=== PATIENT | female | born 1940 | race Caucasian/White ===

== ENCOUNTER → 2017-08-12 12:44 | Outpatient (CLI) | payer MEDICARE, SELFPAY ==
--- NOTE | 2017-08-12 12:48 | RAD_ITS ---
STUDY: X-RAY - UNILATERAL RIBS ( LEFT ) REASON FOR EXAM: Female, 77 years old. Fall. Pain. TECHNIQUE: 2 view(s) of the ribs. COMPARISON: None. FINDINGS: Normal visualized ribs without a demonstrated fracture. The visualized lung is clear and expanded. RAD/Ribs Unil 2V No CXR IMPRESSION: Normal x-ray examination of the ribs. Electronically Signed: Bhaskar Raines MD at 16:56 EDT , Service support ,
--- NOTE | 2017-08-12 12:48 | RAD_ITS ---
STUDY: X-RAY - LUMBAR SPINE REASON FOR EXAM: Female, 77 years old. Fall. Pain. TECHNIQUE: 5 view(s) of the lumbar spine were obtained. COMPARISON: None FINDINGS: There is diffuse demineralization. No compression fractures. Normal lordosis and alignment. Mild multilevel degenerative disc disease. Moderate multilevel facet joint degenerative disease. Heavily calcified aorta, and probable gallstones. RAD/L/S Spine Min 4 Views IMPRESSION: No acute abnormality. Demineralization and degenerative changes. Electronically Signed: Bhaskar Raines MD at 16:52 EDT , Service support ,
== END ==
PROVIDERS: Family Provider Internal Medicine; PCP Internal Medicine; Visit Provider Internal Medicine
DX: M54.9 Dorsalgia, unspecified (principal)
CPT/HCPCS: 71100; 72110

== ENCOUNTER → 2017-08-19 12:31 | Outpatient (CLI) | payer MEDICARE, SELFPAY ==
--- NOTE | 2017-08-19 12:35 | STE_ITS ---
Reason For Study: Dyspnea On Exertion Stress Results Protocol: Dobutamine Stress Echo Maximum Predicted HR: 144 bpm Target HR: 122 bpm% Maximum Pre dicted HR: 91 % DurationHeart Rate Stage (mm:ss) (bpm) BPComm ent Baseline 77 178/99 No Chest Pain DSE 10 MCG 3:05 77 169/100No Chest Pain DSE 20 MCG 3:17 10 0 192/94 No Chest Pain DSE 30 MCG 3:05 13 1 192/109No Chest Pain Recovery 102 154/9 8 No Chest Pain Stress Duration: 9:27 mm:ss Maximum Stress HR: 131 bpmM ETS: 1 Baseline Echocardiogram Findings Stress Echo Wall motion Data Resting WMIntermediate WMStress WM Resting Wall Motion Wall Motion Stress No regional wall motion No regional wall motion abnormalities noted. abnormalities noted. Ejection Fraction 60 %. Ejection Fraction 75 %. Stress Results The patient exhibited a hypertensive response with stress. Drug infusion was stopped due to achievement of target heart rate. EKG Data Baseline ECG demonstrates normal sinus rhythm with a rate of 83 beats per minute. Normal intervals are noted. The resting blood pressure was 178/99. The baseline ECG demonstrates normal sinus rhythm with at rate of _ beats per minute. The patient was titrated from 10 mcg to a maximun of 30 mcg of dobutamine during the stress. This was 90% of maximum predicted heart rate. During dobutamine infusion, there were no ST or T wave changes noted to suggest ischemia. At peak infusion, upsloping ST changes only were noted, which did not meet the criteria for ischemia. The peak blood pressure was 192/109. No arrhythmias noted. No clinical angina was noted. Interpretation Summary The patient was titrated from 10 mcg to a maximun of 30 mcg of dobutamine during the stress. Normal resting LV systolic function. Nonstenotic valves. With stress, the LV size decreased and all segments augmented normally. The LVEF increased from 60% to 75%. Negative for ischemia at 90% of MPHR and at 1 METS. Normal dobutamine stress echo. Ordering Physician: Yasmin Peace Referring Physician: Robert Garcia MD Performed By: Jovanna Garcia RDCS
== END ==
PROVIDERS: Family Provider Internal Medicine; PCP Internal Medicine; Visit Provider Internal Medicine
DX: R06.02 Shortness of breath (principal)
CPT/HCPCS: 93017; 93350; J7030; A4216

== ENCOUNTER → 2017-12-09 12:36 | Outpatient (CLI) | payer MEDICARE, SELFPAY | PROVIDERS: Family Provider Internal Medicine; PCP Internal Medicine; Visit Provider Internal Medicine | DX: Z12.31 Encounter for screening mammogram for malignant neoplasm of breast (principal) | CPT/HCPCS: 77063; 77067 ==

== ENCOUNTER → 2018-12-10 10:06 | Outpatient (CLI) | payer MEDICARE, SELFPAY ==
--- NOTE | 2018-12-10 10:09 | BI_ITS ---
MAMMOGRAPHY - BILATERAL SCREENING 3-D TOMOSYNTHESIS REASON FOR EXAM: Female, 78 years old. Bilateral Screening 3-D tomosynthesis PERTINENT HISTORY: No significant family history. TECHNIQUE: 2-D mammograms and 3-D Tomosynthesis of the breast (s) were performed. CAD was performed. COMPARISON: 12/09/2017, 11/13/2016. FINDINGS: The breast composition is composed of scattered fibroglandular density. Scattered benign calcifications are seen. No dense spiculated masses or suspicious microcalcifications are identified. No architectural distortion is identified. There is no skin thickening or retraction. There has been no significant change since the prior study. BI/SCREEN MAMM (CAD) W/DAXA BILAT IMPRESSION: No mammographic signs of malignancy. Routine yearly mammograms recommended. ASSESSMENT CATEGORY: BIRADS Category 2: Benign. A letter regarding these results will be sent to the patient by the facility within 30 days. FOLLOW UP RECOMMENDATION: Yearly follow up mammogram recommended. (A) Approximately 10% of breast cancers are not detected by mammography. A normal mammogram should not delay biopsy of a clinically suspicious abnormality. Electronically Signed: Norberto Aly MD at 16:19 EDT Tel [phone], Service support ,
--- NOTE | 2018-12-10 10:13 | BD_ITS ---
STUDY: DUAL ENERGY X-RAY ABSORPTIOMETRY / DXA REASON FOR EXAM: Female, 78 years old. The patient is postmenopausal. Loss of height. TECHNIQUE: Bone Mineral Density (BMD) measurements of lumbar spine and bilateral hips were obtained. COMPARISON: Comparison is made with prior examination dated November 13, 2016. FINDINGS: Lumbar Spine (L1-L4): g/cm2 (0.880) / T-score (-2.4) / Z-score (-0.6) Findings are suggestive of osteopenia with a high fracture risk. Increased thoracic kyphosis. Left Femur Total: g/cm2 (0.744) / T-score (-2.1) / Z-score (-0.2) Left Femoral Neck: g/cm2 (0.824) / T-score (-1.5) / Z-score (0.5) Right Femur Total: g/cm2 (0.724) / T-score (-2.3) / Z-score (-0.4) Right Femoral Neck: g/cm2 (0.759) / T-score (-2.0) / Z-score (0.0) The T-Scores on the most recent prior examination were: Lumbar Spine (L1-L4): There has been worsening of bone density since the previous examination. Left Femur Total: which represents a worsening of 7.9%. Right Femur Total: which represents a worsening of 4.7%. BD/Dexa Bone Density Study IMPRESSION: The patient is considered osteopenic as outlined below according to World Inder[employer]it Organization (WHO) criteria with a high fracture risk. There has been worsening of bone density since the previous examination. Reference Information: The T-score is the number of standard deviations above or below the standard which is normal for young adults at their peak bone mineral density. The World Health Organization (WHO) interprets the T-scores as follows: Above -1 Normal bone density Between -1 and -2.5 Osteopenia Equal to / or below -2.5 Osteoporosis As a practical clinical guideline, osteopenia may be graded as follows: Mild -1 through -1.5 Moderate -1.6 through -2.0 Severe -2.1 through -2.4 The Z-score is the number of standard deviations above or below age-matched controls. A Z-score of less than -1.5 would be considered abnormal. References: 1. NIH Osteoporosis and Related Bone Diseases http://www.osteo.org 2. International Society for Clinical Densitometry http://www.iscd.org 3. National Osteoporosis Foundation http://www.nof.org Electronically Signed: Slick Shannon, at 10:40 EDT , Service support ,
== END ==
PROVIDERS: Family Provider Internal Medicine; PCP Internal Medicine; Referring Provider Internal Medicine; Visit Provider Internal Medicine
DX: Z12.31 Encounter for screening mammogram for malignant neoplasm of breast (principal); M81.0 Age-related osteoporosis without current pathological fracture
CPT/HCPCS: 77063; 77067; 77080

== ENCOUNTER → 2019-10-01 13:29 | Outpatient (CLI) | payer MEDICARE, SELFPAY ==
[2019-10-01 11:34] VITALS: BMI 21.2
--- NOTE | 2019-10-01 13:32 | RAD_ITS ---
STUDY: X-RAY - LUMBAR SPINE REASON FOR EXAM: Female, 79 years old. LBP TECHNIQUE: 4 view(s) of the lumbar spine were obtained. Flexion and extension views included. COMPARISON: August 12, 2017 FINDINGS: The bony structures are demineralized. No visualized fracture or compression deformity. No instability/significant subluxation demonstrated with extension or flexion views. Mild retrolisthesis of L2 on L3 of 2 to 3 mm is present, increased by millimeter with extension. Normal lumbar lordosis. There is mild dextroscoliosis of the lumbar spine. There is a normal alignment of the vertebrae. Normal vertebral bodies and endplates. Normal disc space heights. Mild to moderate degenerative changes of the facet joints seen at multiple levels. There is atherosclerotic calcification of the abdominal aorta without a demonstrated aneurysm. RAD/L/S Spine Bending Flex/Ext IMPRESSION: Degenerative changes of the spine, as detailed above. Electronically Signed: Neville Piper MD at 17:27 EDT , Service support ,
== END ==
PROVIDERS: PCP Internal Medicine; Referring Provider Internal Medicine; Visit Provider Internal Medicine
DX: M54.5 Low back pain (principal)
CPT/HCPCS: 72120

== ENCOUNTER → 2019-12-24 10:15 | Outpatient (CLI) | payer MEDICARE, SELFPAY ==
[2019-11-18 05:47] VITALS: BMI 20.4
--- NOTE | 2019-12-24 10:19 | BI_ITS ---
MAMMOGRAPHY - BILATERAL SCREENING REASON FOR EXAM: Female, 79 years old. Routine annual screening examination. PERTINENT HISTORY: Non-contributory. Remote left stereotactic breast biopsy. TECHNIQUE: Digital bilateral breast daxa (3D mammographic acquisition) in the CC and MLO projections. 2-D mediolateral oblique (MLO) and craniocaudad (CC) views of both breasts were obtained. CAD: Full Field Digital Mammography with Computer Added Detection was performed. COMPARISON: Comparison is made with prior examination dated 12/10/2018 and 12/09/2017. FINDINGS: Breast Composition: There are scattered areas of fibroglandular density. There are no dominant masses or suspicious calcifications. No other significant abnormalities are identified. There has been no significant change since the prior study. BI/SCREEN MAMM (CAD) W/DAXA BILAT IMPRESSION: Stable bilateral screening mammogram. Yearly follow-up mammogram recommended. (A) ASSESSMENT CATEGORY: BIRADS Category 1: Negative. A letter regarding these results will be sent to the patient by the facility within 30 days. Approximately 10% of breast cancers are not detected by mammography. A normal mammogram should not delay biopsy of a clinically suspicious abnormality. [id number] Electronically Signed: Slick Shannon, at 11:13 EDT , Service support ,
== END ==
PROVIDERS: PCP Internal Medicine; Referring Provider Internal Medicine; Visit Provider Internal Medicine
DX: Z12.31 Encounter for screening mammogram for malignant neoplasm of breast (principal)
CPT/HCPCS: 77063; 77067

== ENCOUNTER 2020-01-25 10:39 | Inpatient (IN) | payer MEDICARE, SELFPAY ==
[2019-11-18 05:47] VITALS: BMI 20.4
[2020-01-25] VITALS (21 sets, daily range): BP systolic 108–162; BP diastolic 70–123; PULSE 67–88; RESP 12–28; TEMP 36.1–36.8; O2SAT 80–97; BMI 20.5; BMI 20.1
--- NOTE | 2020-01-25 10:56 | EKG12_ITS ---
Test Reason : SOB Blood Pressure : / mmHG Vent. Rate : 080 BPM Atrial Rate : 080 BPM P-R Int : 164 ms QRS Dur : 076 ms QT Int : 366 ms P-R-T Axes : 045 078 -05 degrees QTc Int : 422 ms Normal sinus rhythm Possible Left atrial enlargement T wave abnormality, consider inferior ischemia Abnormal ECG Confirmed by ARLENE FRASER, SHERRY ([id number]), art editor MARY JO CARR ([id number]) on 01/27/2020 10:11:54 AM Referred By: CHERELLE Confirmed By:SHERRY JACOBS MD
--- NOTE | 2020-01-25 10:58 | ED.VIS.GEN ---
History of Present Illness Chief Complaint: Shortness of Breath Informant: Patient Onset: Month(s) - 1 month Context: Gradual Onset Timing: Waxes and wanes Current Severity: Moderate Maximum Severity: Moderate Narrative: Patient presents from PCPs office secondary to shortness of breath. She is a history of COPD and follows with Dr. oPwell. She is normally on 2 to 3 L of oxygen at home. Her PCP has treated her as a COPD exacerbation over the past month. She has been on steroids, Z-Anand, and Augmentin. She had a Covid test that was negative on December 30. She went to her PCPs office today for follow-up and was found to have clear lung sounds but she was still hypoxic. She was sent to the ER for further evaluation. - Past Medical History (1) Carotid stenosis Status: Chronic (2) GERD (gastroesophageal reflux disease) Status: Chronic (3) Hypercholesteremia Status: Chronic (4) Osteoporosis Status: Chronic (5) Restless legs syndrome Status: Chronic (6) COPD (chronic obstructive pulmonary disease) Status: Chronic (7) Chronic hypoxemic respiratory failure Status: Chronic (8) DDD (degenerative disc disease), lumbar Status: Chronic (9) Hypertension Status: Chronic Past Medical History - Allergies and Home Meds Allergies/Adverse Reactions: Allergies codeine Adverse Reaction (Severe, Verified 11/18/19 10:28) Vomiting MOST PAIN MEDS Adverse Reaction (Uncoded 01/25/20 10:40) Vomiting Primary Care Physician: Yasmin Peace MD [Primary Care Provider] - Prior records reviewed: Yes Smoking Status: Former smoker Review of Systems General: Denies: Chills, Fever Eyes: Denies: Visual changes - bilaterally ENT: Denies: Bilateral ear pain Cardiovascular: Denies: Chest pain Respiratory: Reports: Dyspnea, Cough - Occasional cough Gastrointestinal: Denies: Abdominal pain, Nausea, Vomiting, Diarrhea Musculoskeletal: Denies: Swelling, Extremity Pain Skin: Denies: Rash Neurological: Denies: Headache Hematologic: Denies: Easy bruising, Easy bleeding Allergy: Denies: Uticaria Physical Exam Vital Signs/Narrative: Vital Signs Temp Pulse Resp BP Pulse Ox 01/25/20 10:41 96.9 F L 88 22 H 108/95 H 80 Inital Vital Signs reviewed: Yes General: Well nourished, Well developed Head: Normocephalic ENT: Moist mucous membranes Neck: Supple Cardiovascular: Regular rate, Regular rhythm Respiratory: No distress, CTA bilaterally Abdomen: Soft, Nontender Skin: Normal color Neurological: Alert, Oriented x3 Psychological: Normal affect Diagnostic/Tx/Re-eval Impressions Chest CTA 01/25/20 11:44 IMPRESSION: There is a large right hilar mass measuring 7.1 x 5.8 x 5.7 cm, encasing the right upper lobe bronchus and the right pulmonary artery resulted in severe stenosis of the right upper lobe bronchus and right upper lobe artery. There are filling defects in the segmental subsegmental branches in the posterior segment the right lung upper lobe suggesting pulmonary emboli. There is a left anterior nodule measures 2 cm may represent a metastatic lesion. Electronically Signed: Kris Terrence, at 12:54 EDT Tel , Service support , 01/25/20 11:44 CTA Chest W/WO Contrast [CT] Stat Laboratory Results 01/25/20 01/25/20 01/25/20 11:10 11:10 11:10 WBC 7.1 RBC 4.70 Hgb 15.1 H Hct 47.4 H MCV 100.9 H MCH 32.1 H MCHC 31.9 L RDW Std Deviation 49.5 H RDW Coeff of Denis 13.3 Plt Count 290 MPV 8.9 Immature Gran % (Auto) 0.400 Neut % (Auto) 79.5 H Lymph % (Auto) 13.2 L Fergus % (Auto) 6.1 Eos % (Auto) 0.4 Baso % (Auto) 0.4 Absolute Neuts (auto) 5.6 Absolute Lymphs (auto) 0.93 Nucleated RBC % 0 D-Dimer Quant (PE/DVT) 0.83 H* Sodium 138 Potassium 4.0 Chloride 103 Carbon Dioxide 30.0 Anion Gap 5 BUN 12 Creatinine 0.74 Estim Creat Clear Calc 33.20 Est GFR (MDRD) Af Amer 98 Est GFR (MDRD) Non-Af 81 BUN/Creatinine Ratio 16.3 Glucose 91 Lactic Acid Calcium 9.8 Total Bilirubin 0.60 Direct Bilirubin 0.20 AST 18 ALT 15 Alkaline Phosphatase 74 Troponin I 0.032 Total Protein 8.3 H Albumin 3.5 Globulin 4.8 H COVID-19 (MEI) 10/05/20 10/05/20 11:10 11:10 WBC RBC Hgb Hct MCV MCH MCHC RDW Std Deviation RDW Coeff of Denis Plt Count MPV Immature Gran % (Auto) Neut % (Auto) Lymph % (Auto) Fergus % (Auto) Eos % (Auto) Baso % (Auto) Absolute Neuts (auto) Absolute Lymphs (auto) Nucleated RBC % D-Dimer Quant (PE/DVT) Sodium Potassium Chloride Carbon Dioxide Anion Gap BUN Creatinine Estim Creat Clear Calc Est GFR (MDRD) Af Amer Est GFR (MDRD) Non-Af BUN/Creatinine Ratio Glucose Lactic Acid 1.4 Calcium Total Bilirubin Direct Bilirubin AST ALT Alkaline Phosphatase Troponin I Total Protein Albumin Globulin COVID-19 (MEI) Not Detected - EKG Initial EKG Interpretation: Sinus Rhythm - Sinus at [address] change. T inversions noted in lead III. - Medical Decision Making On arrival to the ED patient's sat remained 79% on 6 L nasal cannula. She was placed on nonrebreather and has been satting between 90 and 94%. With any exertion she will drop her sats for a short time and require time for this to recover. Test results discussed with patient and daughter at bedside. She was advised there is a large mass that will require biopsy for further evaluation. She also has blood clots in her lung. She is started on a heparin drip thinking that this could be turned off her lung biopsy. She is still requiring nonrebreather and will be admitted to the ICU. ED Disposition - Plan for ED Patient: Disposition: Acute Care Hospital [facility] Diagnosis: Respiratory failure, Pulmonary emboli, Lung mass Referrals: Yasmin Peace MD [Primary Care Provider] -
[2020-01-25 11:21] LABS: Absolute Lymphocyte Count 0.93 X10^3/uL (0.83-4.51); Absolute Neutrophil Count 5.6 X10^3/uL (2.0-7.7); Basophil# 0.03 X10^3/uL; Basophil% 0.4 % (0-1); Eosinophil# 0.03 X10^3/uL; Eosinophils% 0.4 % (0-5); Hematocrit 47.4 % (37-47); Hemoglobin 15.1 g/dL (12.0-15.0); Lymphocyte # 0.93 X10^3/ul (4.0); Lymphocyte % 13.2 % (19-41); Mean Corp Hgb Conc 31.9 g/dL (32-36); Mean Corpuscular Hgb 32.1 pg (27.0-32.0); Mean Corpuscular Volume 100.9 fL (81-99); Mean Platelet Vol. 8.9 fl (6.2-12.0); Monocyte# 0.43 X10^3/uL; Monocyte% 6.1 % (0-10); NRBC Flagged by Analyzer 0 % (0-5); Neutrophil # 5.62 X10^3/uL (2.7-7.7); Neutrophil % 79.5 % (47-70); Platelet Count 290 K/mm3 (150-450); RBC Distribution Width CV 13.3 % (11.6-14.6); RBC Distribution Width SD 49.5 fl (35.1-43.9); White Blood Count 7.1 K/mm3 (4.4-11.0)
[2020-01-25 11:34] LABS: D-Dimer Quantitative (DVT/PE) 0.83 FEU/ug/m (0.27-0.49)
[2020-01-25 11:40] LABS: AST(SGOT) 18 U/L (15-37); Alanine Aminotransfer ALT/SGPT 15 U/L (13-56); Albumin, Serum 3.5 g/dL (3.2-5.0); Alkaline Phosphatase 74 U/L (45-117); Anion Gap 5 (5-15); BUN 12 mg/dL (7-18); BUN/Creat Ratio 16.3 RATIO (10-20); Calcium,Total 9.8 mg/dL (8.5-10.1); Chloride 103 mmol/L (98-107); Creatinine, Serum 0.74 mg/dL (0.55-1.02); EST Glomerular Filtration Rate 81 mL/min (>60); Est Glom Filt Rate - Afr Amer 98 mL/min (>60); Globulin 4.8 g/dL (2.2-4.2); Glucose 91 mg/dL (74-106); Protein, Total 8.3 g/dL (6.4-8.2); Sodium Level 138 mmol/L (136-145)
--- NOTE | 2020-01-25 11:44 | CT_ITS ---
STUDY: CTA CHEST REASON FOR EXAM: Female, 79 years old. PE, INCREASED SOB X 1 MONTH, ELEVATED D-DIMER RADIATION DOSAGE (If Supplied By Facility): CTDIvol = ( 3.97 ) mGy, DLP = ( 104.80 ) mGycm TECHNIQUE: The examination was performed with the intravenous administration of IV 75mL Isovue-370. Post-processing of the angiographic images was performed, with multiplanar reformation and 3D reconstruction. Individualized dose optimization techniques were used for this CT. COMPARISON: None. FINDINGS: Normal enhancement of the main pulmonary artery and right and left pulmonary arteries. There are filling defects in the segmental subsegmental branches in the posterior segment the right lung upper lobe suggesting pulmonary emboli. Normal thoracic aorta and visualized great vessels. There is no demonstrated aortic dissection. Normal heart and pericardium. Normal mediastinum. There is a large right hilar mass measuring 7.1 x 5.8 x 5.7 cm, encasing the right upper lobe bronchus and the right pulmonary artery resulted in severe stenosis of the right upper lobe bronchus and right upper lobe artery. There are filling defects in the segmental subsegmental branches in the posterior segment the right lung upper lobe suggesting pulmonary emboli. Normal visualized trachea and bronchi. The lungs are hyper expanded, with flattening of the hemidiaphragms. Emphysematous changes are noted in the right and left lung upper lobes. Normal pleura. Normal chest wall structures. There are degenerative changes of thoracic spine. There is a left anterior nodule measures 2 cm may represent a metastatic lesion. CT/CTA Chest W/WO Contrast IMPRESSION: There is a large right hilar mass measuring 7.1 x 5.8 x 5.7 cm, encasing the right upper lobe bronchus and the right pulmonary artery resulted in severe stenosis of the right upper lobe bronchus and right upper lobe artery. There are filling defects in the segmental subsegmental branches in the posterior segment the right lung upper lobe suggesting pulmonary emboli. There is a left anterior nodule measures 2 cm may represent a metastatic lesion. Electronically Signed: Kris Ocampo, at 12:54 EDT Tel , Service support ,
[2020-01-25 11:50] LABS: Lactic Acid 1.4 mmol/L (0.4-1.9)
--- NOTE | 2020-01-25 13:52 | NURSING ---
HOSPITALIST PAGED DR HUSSEIN PAGED
--- NOTE | 2020-01-25 14:09 | NURSING ---
ICU LUNG MASS, HYPOXIA, PE TERETSKY
[2020-01-25 14:37] LABS: Partial Thromboplast Time 34.8 Seconds (24.1-36.2)
--- NOTE | 2020-01-25 14:58 | NURSING ---
ICU 6
[2020-01-25] MEDS: Heparin Injection (Vial) 5,000 UNIT/ML VIAL 3500 UNIT IV (15:03)
--- NOTE | 2020-01-25 15:22 | HP.PCM_ITS ---
Problem List (1) Shortness of breath Status: Acute (2) Low pulse oximetry Status: Acute History of Present Illness Date of Admission: 01/25/20 Chief Complaint: Low pulse oximetry as outpatient, shortness of breath The patient is a 79 year old F who was seen in the emergency room at [facility] after being sent in for evaluation by her PCP due to a low pulse oximetry in the PCPs office today. Patient had complained of increased shortness of breath over the past 2 months, she is on home O2 continuously and sees pulmonary medicine with a diagnosis of COPD. Patient's usual oxygen setting is on 4 L, she has a portable concentrator that only goes up to 3 L. On arrival to the emergency room, the patient's pulse ox was only 80% on 6 L via nasal cannula, patient was transitioned to a nonrebreather, she did not complain of any severe shortness of breath on evaluation. Labs were obtained in the emergency room, her white blood cell count was normal, hemoglobin was 15.1, d- dimer was elevated at 0.83, chemistry profile was unremarkable. Patient had a COVID-19 test ordered-this resulted negative. Patient had a CTA of her chest which showed the presence of a right hilar mass and also the presence of pulmonary emboli in the right upper lobe. Patient will be admitted to ICU for acute on chronic hypoxic respiratory failure, PE, and right lung mass, I talked briefly with pulmonary medicine about her care, patient will be placed on subcu Lovenox, she will be seen in consultation by pulmonary medicine, patient wants to be a DNR CC arrest without intubation-I discussed this with her at the time of admission and also her daughter confirm this-her daughter was in the room during the time of my examination. Patient does state that she wants to be worked up for possible cancer and she would consider whether to have treatment if it comes back that she has cancer. Past Medical History Past Medical History (Chronic Problems): Chronic Problems (Last Reviewed 12/02/19 @ 11:04 by Melissa Camarillo) DDD (degenerative disc disease), lumbar (Chronic) Scoliosis of lumbar spine (Chronic) Bronchiectasis (Chronic) Chronic hypoxemic respiratory failure (Chronic) Stage 2 moderate COPD by GOLD classification (Chronic) Hypercholesteremia (Chronic) Carotid stenosis (Chronic) GERD (gastroesophageal reflux disease) (Chronic) Restless legs syndrome (Chronic) COPD (chronic obstructive pulmonary disease) (Chronic) Hypertension (Chronic) Osteoporosis (Chronic) Polycythemia (Chronic) Medical History: Medical History (Last Reviewed 12/02/19 @ 11:04 by Melissa Camarillo) Elevated high sensitivity C-reactive protein (Acute) R79.82 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 Hypercholesteremia (Chronic) E78.00 Carotid stenosis (Chronic) I65.29 Allergic rhinitis (Acute) J30.9 GERD (gastroesophageal reflux disease) (Chronic) K21.9 Restless legs syndrome (Chronic) G25.81 Gout tophi (Acute) [id number] COPD (chronic obstructive pulmonary disease) (Chronic) J44.9 SOB (shortness of breath) on exertion (Acute) R06.02 Hypertension (Chronic) I10 Bladder prolapse (Acute) Vitamin D deficiency (Acute) E55.9 Osteoporosis (Chronic) M81.0 Bilateral headaches R51 Environmental allergies Z91.09 Allergies codeine Adverse Reaction (Severe, Verified 11/18/19 10:28) Vomiting MOST PAIN MEDS Adverse Reaction (Uncoded 01/25/20 10:40) Vomiting Home Medications: Ambulatory Orders Medication Instructions Recorded Albuterol Inhaler [Ventolin Hfa 1 - 2 puff INHALATION Q4H PRN PRN 07/27/19 (SP)] Lisinopril [Zestril] 20 mg PO BID 07/27/19 Metoprolol(XL)Succ [Toprol Xl 100 mg PO BID 07/27/19 (Beta Emmie)] Nifedipine [Procardia Xl] 30 mg PO DAILY 07/27/19 tiotropium 2.5 mcg-olodaterol 2.5 2 puff INHALATION DAILY 08/03/19 mcg/actuation mist for inhalation Albuterol Aerosols [Ventolin 2.5 mg INHALATION Q4H PRN PRN 01/25/20 Aerosols] Calcium Carbonate/Vitamin D3 1 tab PO DAILY 01/25/20 [Calcium 600-Vit D3 200 Tablet] Denosumab [Prolia] 60 mg IM .[id number] 01/25/20 Surgical History: Surgical History (Last Reviewed 12/02/19 @ 11:04 by Melissa Camarillo) No history of previous surgery (Resolved) Surgical History: tonsillectomy Psychiatric History: 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 [employer] History: No pertinent [employer] history Lives: Alone Smoking Status: Former smoker Tobacco Use: Non-smoker Alcohol: Occasional Drugs: None - *Family History Maternal Family History: Family History (Last Reviewed 12/02/19 @ 11:04 by Melissa Camarillo) Sister Breast cancer Brother Thyroid disorder Brain cancer Mother Leukemia Father Prostate cancer History Items: Cancer - Leukemia Paternal Family History: Family History (Last Reviewed 12/02/19 @ 11:04 by Melissa Camarillo) Sister Breast cancer Brother Thyroid disorder Brain cancer Mother Leukemia Father Prostate cancer History Items: Cancer - Prostate cancer Review of Systems Constitutional: Denies: Anorexia, Chills, Fever, Night Sweats, Malaise, Weakness, Weight Change, Fatigue Eyes: Denies: Cataracts, Conjunctivae Inflammation, Double vision, Drainage HEENT: Denies: Dysphasia, Ear Pain, Eye Pain, Hearing Changes, Nasal bleeding, Nasal Congestion, Post Nasal Drip Cardiovascular: Denies: Chest Pain, Claudication, Chest Pressure, Chest Tightness, Edema, Heaviness, Palpitations Respiratory: Reports: Shortness of Breath, Shortness of breath at rest, Shortness of breath upon exertion. Denies: Cough, Hemoptysis, Pleuritic Pain, Sputum production, Wheezing Gastrointestinal: Denies: Abdominal Pain, Constipation, Diarrhea, Hematemesis, Hematochezia, Nausea, Melena, Vomiting Genitourinary: Denies: Dysuria, Frequency, Hematuria, Hesitancy, Nocturia, Retention, Urgency Musculoskeletal: Denies: Foot Pain, Hand Pain, Joint Pain, Joint stiffness, Joint swelling, Joint Tenderness, Leg Pain Skin: Denies: Dryness, Jaundice, Pruritis, Rash Neurological: Denies: Blurred vision, Double vision, Change in Speech, Slurred speech, Difficulty swallowing, Focal weakness, Headaches, Incoordination, Numbness, Tingling Psychiatric: Denies: Anxiety, Depression, Homicidal Ideations, Suicidal Ideations Endocrine: Denies: Change in Body Habitus, Heat/ Cold Intolerance, Polydipsia, Polyuria Hematologic/ Lymphatic: Denies: Adenopathy, Anemia, Easy Bruising, Easy Bleeding, Petechiae, Purpura VTE Information - Inpt Only VTE Present on Admission: Yes VTE Mechan Device Prophylaxis: None VTE Pharm Prophylaxis ordered?: No Reason prophylaxis not ordered:: Treatment Not Indicated - Patient has right upper lobe PE Patient Problems: Active and Suspected Problems (Last Reviewed 12/02/19 @ 11:04 by Melissa Camarillo) Respiratory failure (Acute) Pulmonary emboli (Acute) Lung mass (Acute) Shortness of breath (Acute) Low pulse oximetry (Acute) - Physical Exam Vitals/I&O's: Vital Signs Temp Pulse Resp BP Pulse Ox 98.3 F 76 19 H 146/108 H 93 01/25/20 15:08 01/25/20 15:08 01/25/20 15:08 01/25/20 15:08 01/25/20 15:08 Oxygen Flow Rate (L/min) 15 Oxygen Delivery Method Non-Rebreather Weight: 45.359 kg Body Mass Index (BMI) 20.5 General: Alert, Oriented x3, Cooperative, No apparent distress, Well developed, Well nourished HEENT: Atraumatic, PERRLA, EOMI, Normocephalic Oral: Moist Mucosa Neck: Supple, No JVD, Negative Carotid Bruits, Trachea Midline, Thyroid Normal Size and Texture Lungs: No rhonchi, Diminished, Rales - Fine rales at the lung bases bilaterally, Wheezes - Diffuse expiratory wheezes over the lower lung green bilaterally Cardiovascular: Regular rate, Regular Rhythm, Normal S1, Normal S2, No murmurs, PMI Normal, No rub noted, No Gallop Abdomen: Bowel Sounds Present, Soft, Non Tender, Non-Distended, No hernias noted Extremities: No clubbing, No cyanosis, No edema, Capillary Refill Less than 3 Seconds Skin: No rashes, No breakdown Musculoskeletal: No Tenderness to Palpation of Joints or Extremities Neurological: Cranial nerves II-XII grossly intact, Neuro grossly intact, Sensory exam intact to light touch and pain, Coordination normal Psych/Mental Status: Normal Affect, Appropriate, Alert and oriented to time, place, person, mood and affect Laboratory Results 01/25/20 11:10: WBC 7.1, RBC 4.70, Hgb 15.1 H, Hct 47.4 H, MCV 100.9 H, MCH 32.1 H, MCHC 31.9 L, RDW Std Deviation 49.5 H, RDW Coeff of Denis 13.3, Plt Count 290, MPV 8.9, Immature Gran % (Auto) 0.400, Neut % (Auto) 79.5 H, Lymph % (Auto) 13.2 L, [place] % (Auto) 6.1, Eos % (Auto) 0.4, Baso % (Auto) 0.4, Absolute Neuts (auto) 5.6, Absolute Lymphs (auto) 0.93, Nucleated RBC % 0 01/25/20 11:10: D-Dimer Quant (PE/DVT) 0.83 H* 01/25/20 11:10: Sodium 138, Potassium 4.0, Chloride 103, Carbon Dioxide 30.0, Anion Gap 5, BUN 12, Creatinine 0.74, Estim Creat Clear Calc 33.20, Est GFR (MDRD) Af Amer 98, Est GFR (MDRD) Non-Af 81, BUN/Creatinine Ratio 16.3, Glucose 91, Calcium 9.8, Total Bilirubin 0.60, Direct Bilirubin 0.20, AST 18, ALT 15, Alkaline Phosphatase 74, Troponin I 0.032, Total Protein 8.3 H, Albumin 3.5, Globulin 4.8 H 01/25/20 11:10: Lactic Acid 1.4 01/25/20 11:10: COVID-19 (MEI) Not Detected 01/25/20 11:10: APTT 34.8 Current Medications Heparin Sodium (Porcine) (Heparin Na) 0 unit IV UD PRN; Protocol PRN Reason: dose adjustment Heparin Sodium/Sodium Chloride () 25,000 unit in 250 mls @ 7 mls/hr IV .[id number] [facility]; Protocol Last Admin: 01/25/20 15:02 Dose: 700 units/hr, 7 mls/hr Documented by: Assessment/Plan All Active Problems (Last Reviewed 12/02/19 @ 11:04 by Melissa Camarillo) Respiratory failure (Acute) Pulmonary emboli (Acute) Lung mass (Acute) Shortness of breath (Acute) Low pulse oximetry (Acute) Segmental and somatic dysfunction of lumbar region (Acute) Segmental and somatic dysfunction of pelvic region (Acute) Segmental and somatic dysfunction of thoracic region (Acute) Elevated high sensitivity C-reactive protein (Acute) Congenital cystic disease of kidney (Acute) Allergic rhinitis (Acute) Gout tophi (Acute) SOB (shortness of breath) on exertion (Acute) Bladder prolapse (Acute) Vitamin D deficiency (Acute) No history of previous surgery (Resolved) #1 acute on chronic hypoxic respiratory failure-probably is a combination of several factors: Acute exacerbation of COPD, acute right upper lobe PE, large right hilar mass-all on an overlay of severe COPD, patient will be admitted to ICU, she will be seen in consultation by pulmonary medicine, patient will be maintained on high flow oxygen for now via nonrebreather, she will be given aggressive aerosol treatments and IV Solu-Medrol. #2 right upper lobe PE-patient will be maintained on subcu Lovenox #3 right hilar mass-probably primary lung cancer, possibly metastatic cancer from another site although less probable, patient is never had a colonoscopy, this right hilar mass will need work-up as an outpatient probably, again patient is not sure whether she would want treatment if it was a cancer but she is not against undergoing a work-up for this. #4 severe COPD #5 essential hypertension #6 chronic hypoxic respiratory failure-patient is on home O2 Again, patient is a DNR CC arrest without intubation. Inpatient E&M: [id number] Init Hosp L3
[2020-01-25] MEDS: Metoprolol(XL)Succ 100 MG Tablet PO (17:11)
[2020-01-25] MEDS: Enoxaparin 60 MG/0.6 ML Syringe 50 MG SC (17:12)
[2020-01-25] MEDS: Ipratropium/Albuterol Sulfate 3 ML AMPUL.NEB INHALATION ×2 (19:32→22:56)
[2020-01-25] MEDS: Lisinopril 20 MG Tablet PO (21:20)
[2020-01-25] MEDS: 0.9% Saline Lock 10 ML Syringe IV (21:30)
--- NOTE | 2020-01-25 22:05 | NURSING ---
Sats 96% on 15L. Decreased O2 to 13L.
[2020-01-26] VITALS (25 sets, daily range): BP systolic 109–149; BP diastolic 31–87; PULSE 61–92; RESP 16–23; TEMP 36.4–36.9; O2SAT 88–99; BMI 20.7
[2020-01-26] MEDS: Ipratropium/Albuterol Sulfate 3 ML AMPUL.NEB INHALATION ×6 (02:33→23:03)
[2020-01-26 05:43] LABS: Absolute Lymphocyte Count 0.44 X10^3/uL (0.83-4.51); Absolute Neutrophil Count 4.6 X10^3/uL (2.0-7.7); Basophil# 0.01 X10^3/uL; Basophil% 0.2 % (0-1); Differential Indicated SCAN CRITERIA MET; Hematocrit 45.6 % (37-47); Hemoglobin 14.5 g/dL (12.0-15.0); Lymphocyte # 0.44 X10^3/ul (4.0); Lymphocyte % 8.5 % (19-41); Mean Corp Hgb Conc 31.8 g/dL (32-36); Mean Corpuscular Hgb 31.3 pg (27.0-32.0); Mean Corpuscular Volume 98.3 fL (81-99); Mean Platelet Vol. 9.1 fl (6.2-12.0); Monocyte# 0.08 X10^3/uL; Monocyte% 1.6 % (0-10); NRBC Flagged by Analyzer 0 % (0-5); Neutrophil # 4.59 X10^3/uL (2.7-7.7); Neutrophil % 89.1 % (47-70); POSITIVE DIFFERENTIAL YES; Platelet Count 282 K/mm3 (150-450); RBC Distribution Width CV 13.2 % (11.6-14.6); RBC Distribution Width SD 47.5 fl (35.1-43.9); Red Blood Count 4.64 M/mm3 (4.2-5.4); White Blood Count 5.2 K/mm3 (4.4-11.0)
[2020-01-26] MEDS: 0.9% Saline Lock 10 ML Syringe IV ×3 (05:43→21:37)
[2020-01-26] MEDS: Enoxaparin 60 MG/0.6 ML Syringe 50 MG SC ×2 (05:43→17:17)
[2020-01-26 06:03] LABS: ALB/GLOB Ratio 0.7 RATIO (0.9-2.4); AST(SGOT) 28 U/L (15-37); Alanine Aminotransfer ALT/SGPT 17 U/L (13-56); Alkaline Phosphatase 63 U/L (45-117); Anion Gap 1 (5-15); BUN 19 mg/dL (7-18); BUN/Creat Ratio 24.6 RATIO (10-20); Calcium,Total 9.6 mg/dL (8.5-10.1); Chloride 105 mmol/L (98-107); Creatinine, Serum 0.77 mg/dL (0.55-1.02); EST Glomerular Filtration Rate 77 mL/min (>60); Est Glom Filt Rate - Afr Amer 93 mL/min (>60); Estimated Creatinine Clearance 33.52 ml/min; Globulin 4.3 g/dL (2.2-4.2); Glucose 139 mg/dL (74-106); Protein, Total 7.3 g/dL (6.4-8.2); Sodium Level 136 mmol/L (136-145)
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
[2020-01-26 06:14] LABS: Differential Comment SCANNED
--- NOTE | 2020-01-26 06:20 | ECHOD_ITS ---
Reason For Study: Dyspnea/SOB Procedure This was a 2D Doppler, Color Flow transthoracic echocardiogram. Technically difficult, breath dependent. The study was technically difficult. Exam performed portable in ICU/CCU. Left Ventricle Normal LV size. Left ventricular systolic function is normal. The estimated ejection fraction is 70 %. Diastolic function is indeterminate. No regional wall motion abnormalities noted. Right Ventricle Mildly dilated right ventricle. Normal systolic function. Atria The left atrium is mildly enlarged. Normal right atrium. No doppler evidence for ASD. Mitral Valve There is mild mitral annular calcification. Mild focal mitral valve calcification, bileaflet. Mild (1+) mitral valve insufficiency. Tricuspid Valve Normal tricuspid valve. Mild to moderate (1-2+) tricuspid valve insufficiency. Right ventricular systolic pressure estimated to be 86 mmHg. Aortic Valve Trisinus/trileaflet aortic valve. Normal aortic valve. Mild (1+) aortic valve insufficiency. Pulmonic Valve The pulmonic valve is not well visualized. Mild (1+) pulmonic valve insufficiency. Great Vessels Normal sized aortic root. Calcified aortic root. Pericardium/Pleural No pericardial effusion. MMode/2D Measurements & Calculations LVIDd: 3.3 cm IVSd: 1.4 cm Ao root diam: 3.2 cm LVIDs: 1.6 cm LVPWd: 1.1 cm LA dimension: 3.1 cm RVDd: 4.4 cm FS: 51.4 % LAV(MOD-bp): 43.3 ml LA A4 area: 18.0 cm2 RA A4 area: 15.9 cm2 LAV(MOD-bp) Indexed: 31.9 ml/m2 LAV(MOD-sp2): 33.6 ml LAV(MOD-sp4): 47.5 ml Time Measurements MV dec time: 0.30 sec Doppler Measurements & Calculations MV E max garrick: 58.8 cm/sec Lat Peak E' Garrick: 8.4 cm/sec Med Peak E' Garrick: 5.1 cm/sec MV A max garrick: 103.5 cm/sec E/E' lat: 7.0 E/E' med: 11.5 MV E/A: 0.57 MV V2 max: 114.3 cm/sec MV P1/2t max garrick: 65.8 cm/sec Ao V2 max: 154.8 cm/sec MV max P.2 mmHg MV P1/2t: 80.0 msec Ao max P.6 mmHg MV V2 mean: 53.3 cm/sec MV dec slope: 240.9 cm/sec2 Ao V2 mean: 99.9 cm/sec MV mean P.4 mmHg MVA(P1/2t): 2.8 cm2 Ao mean P.6 mmHg MV V2 VTI: 25.7 cm Ao V2 VTI: 32.6 cm AI max garrick: 446.7 cm/sec LV V1 max: 121.9 cm/sec TR max garrick: 442.7 cm/sec AI max P.8 mmHg LV V1 max P.9 mmHg TR max P.4 mmHg LV V1 mean P.8 mmHg AI dec slope: 250.9 cm/sec2 LV V1 mean: 76.7 cm/sec AI P1/2t: 521.5 msec LV V1 VTI: 24.5 cm Interpretation Summary The study was technically difficult. Left ventricular systolic function is normal. The estimated ejection fraction is 70 %. Mildly dilated right ventricle. The left atrium is mildly enlarged. There is mild mitral annular calcification. Mild focal mitral valve calcification, bileaflet. Mild (1+) mitral valve insufficiency. Mild to moderate (1-2+) tricuspid valve insufficiency. Mild (1+) aortic valve insufficiency. Mild (1+) pulmonic valve insufficiency. Calcified aortic root. Right ventricular systolic pressure estimated to be 86 mmHg c/w severe pulmonary hypertension. Diastolic function is indeterminate. Ordering Physician: Fadi Vasquez Referring Physician: Yasmin Peace M.D. Performed By: Rogers Jameson RCS
[2020-01-26 08:33] LABS: International Normalized Ratio 1.4
[2020-01-26] MEDS: Metoprolol(XL)Succ 100 MG Tablet PO ×2 (09:55→21:35)
[2020-01-26] MEDS: Lisinopril 20 MG Tablet PO ×2 (09:55→21:35)
[2020-01-26] MEDS: NIFEdipine 30 MG Tablet PO (09:55)
--- NOTE | 2020-01-26 10:29 | NT.THERAPY_ITS ---
Nutrition Therapy Report - History Current diet / nutrition support order:: regular - Anthropometric Measurements Height:: 4 ft 10.5 in Weight:: 45.8 kg Body Mass Index (BMI):: 20.7 - Relevant Labs Relevant Labs:: Hgb 15.1 g/dL (12.0-15.0) H 01/25/20 11:10 Hct 47.4 % (37-47) H 01/25/20 11:10 MCV 100.9 fL (81-99) H 01/25/20 11:10 MCH 32.1 pg (27.0-32.0) H 01/25/20 11:10 MCHC 31.8 g/dL (32-36) L 01/26/20 05:20 RDW Std Deviation 47.5 fl (35.1-43.9) H 01/26/20 05:20 Neut % (Auto) 89.1 % (47-70) H 01/26/20 05:20 Lymph % (Auto) 8.5 % (19-41) L 01/26/20 05:20 Absolute Lymphs (auto) 0.44 X10^3/uL (0.83-4.51) L 01/26/20 05:20 PT 17.0 SECONDS (11.7-14.9) H 01/26/20 07:50 D-Dimer Quant (PE/DVT) 0.83 FEU/ug/m (0.27-0.49) H* 01/25/20 11:10 Anion Gap 1 (5-15) L 01/26/20 05:20 BUN 19 mg/dL (7-18) H 01/26/20 05:20 BUN/Creatinine Ratio 24.6 RATIO (10-20) H 01/26/20 05:20 Glucose 139 mg/dL (74-106) H 01/26/20 05:20 Total Protein 8.3 g/dL (6.4-8.2) H 01/25/20 11:10 Albumin 3.0 g/dL (3.2-5.0) L 01/26/20 05:20 Globulin 4.3 g/dL (2.2-4.2) H 01/26/20 05:20 Albumin/Globulin Ratio 0.7 RATIO (0.9-2.4) L 10/06/20 05:20 - Assessment Food / Nutrition-Related History:: Pt describes appetite as haseeb, states it has declined w/ age. Reports she isn't able to eat large meals d/t resp. status. No special diet at home. Was instructed by PCP to drink Ensure/Boost at home- tries to drink w/meals but states 1 bottle is too much w/ food. Believes UBW ~102- 103#, CBW 101#. Nutrition focused physical exam reveals mild to moderate muscle wasting of both upper and lower extremities, obvious moderate fat loss to clavicles, acromion. Noted elevated blood glucose- on IV steroid. - Nutrition Diagnosis Problem / Etiology / Signs & Symptoms (PES):: Pt w/ chronic, moderate malnutrition related to inadequate energy intake and increased energy needs r/t COPD as evidenced by estimated PO intake meeting less than 75% of pt's needs for greater than 3 months and nutrition focused physical exam revealing mild to moderate muscle wasting of both upper and lower extremities, obvious moderate fat loss to clavicles, acromion process. Evidence of Malnutrition Exists:: Yes Moderate PCM:: Chronic Illness - Nutrition Intervention Nutrition Prescription:: [id number] calories/day, 50-60 g protein/day - Food / Nutrient Delivery Interventions Summary of nutrition intervention:: Discussed ONS w/ pt- explained that smaller, more frequent meals/snacks may be better tolerated for pt. Agreeable to trying Ensure Enlive w/ medpass in between meals for additional calories/protein if consumed. Pt states she has chocolate and vanilla ONS at home- likes vanilla w/ ice cream w/ her ensure. Lunch order taken for pt- no questions for RDN at this time. Nutrition support ordered as / adjusted to:: will continue regular diet and provide Ensure Enlive 120mL 4x/day w/ mepdass. Nutrition education provided?: Yes - MNT Monitoring Further MNT monitoring and evaluation required?: Yes MNT Follow-up in:: 3-5 days
--- NOTE | 2020-01-26 10:29 | PCM.PN.HOSP ---
Patient Problems: Active and Suspected Problems (Last Reviewed 12/02/19 @ 11:04 by Melissa Camarillo) Respiratory failure (Acute) Pulmonary emboli (Acute) Lung mass (Acute) Shortness of breath (Acute) Low pulse oximetry (Acute) Subjective: Patient seen and examined. She was admitted with a complaint of shortness of breath and found to have a right lung mass as well as right-sided PE. She feels much better today. She feels her shortness of breath is improving. She denies any chest pain, palpitations, dizziness, nausea vomiting or diarrhea. Review of stems otherwise negative. She is down to 7 L of oxygen. She has remained hemodynamically stable. Vitals/I&O's: Vital Signs Temp Pulse Resp BP Pulse Ox 98 F 86 18 126/86 H 88 01/26/20 03:00 01/26/20 09:55 01/26/20 09:00 01/26/20 09:55 01/26/20 09:00 Oxygen Flow Rate (L/min) 7 Oxygen Delivery Method Nasal Cannula Weight: 100 lb 15.547 oz Body Mass Index (BMI) 20.1 Intake and Output for Last 24 Hours 01/24/20 01/25/20 01/26/20 23:59 23:59 23:59 Intake Total 220 / 220 0 / 0 Output Total 175 / 175 250 / 250 Balance 45 / 45 -250 / -250 General: Alert, Oriented x3, Cooperative HEENT: Atraumatic, PERRLA, EOMI, Normocephalic Oral: Dry Mucosa Neck: Supple, No JVD, Negative Carotid Bruits Lungs: - - diminished breath sounds bibasally, no wheezes or crackles. on 7L of oxygen by nasal canula Cardiovascular: Regular rate, Regular Rhythm, Normal S1, Normal S2, No murmurs Abdomen: Bowel Sounds Present, Soft, Non Tender, Non-Distended, No Hepato-splenomegaly Extremities: No clubbing, No cyanosis, No edema, Capillary Refill Less than 3 Seconds Skin: No rashes, No breakdown Musculoskeletal: No Tenderness to Palpation of Joints or Extremities Lymphatic: No Cervical, Supraclavicular, or Inguinal Adenopathy Neurological: Cranial nerves II-XII grossly intact, Neuro grossly intact, Motor Exam 5/5 strength throughout Psych/Mental Status: Normal Affect, Appropriate, Alert and oriented to time, place, person, mood and affect Laboratory Results 01/25/20 11:10: WBC 7.1, RBC 4.70, Hgb 15.1 H, Hct 47.4 H, MCV 100.9 H, MCH 32.1 H, MCHC 31.9 L, RDW Std Deviation 49.5 H, RDW Coeff of Denis 13.3, Plt Count 290, MPV 8.9, Immature Gran % (Auto) 0.400, Neut % (Auto) 79.5 H, Lymph % (Auto) 13.2 L, Edgar % (Auto) 6.1, Eos % (Auto) 0.4, Baso % (Auto) 0.4, Absolute Neuts (auto) 5.6, Absolute Lymphs (auto) 0.93, Nucleated RBC % 0 01/25/20 11:10: D-Dimer Quant (PE/DVT) 0.83 H* 01/25/20 11:10: Sodium 138, Potassium 4.0, Chloride 103, Carbon Dioxide 30.0, Anion Gap 5, BUN 12, Creatinine 0.74, Estim Creat Clear Calc 33.20, Est GFR (MDRD) Af Amer 98, Est GFR (MDRD) Non-Af 81, BUN/Creatinine Ratio 16.3, Glucose 91, Calcium 9.8, Total Bilirubin 0.60, Direct Bilirubin 0.20, AST 18, ALT 15, Alkaline Phosphatase 74, Troponin I 0.032, Total Protein 8.3 H, Albumin 3.5, Globulin 4.8 H 01/25/20 11:10: Lactic Acid 1.4 01/25/20 11:10: COVID-19 (MEI) Not Detected 01/25/20 11:10: APTT 34.8 01/26/20 05:20: WBC 5.2, RBC 4.64, Hgb 14.5, Hct 45.6, MCV 98.3, MCH 31.3, MCHC 31.8 L, RDW Std Deviation 47.5 H, RDW Coeff of Denis 13.2, Plt Count 282, MPV 9.1, Immature Gran % (Auto) 0.600, Neut % (Auto) 89.1 H, Lymph % (Auto) 8.5 L, Edgar % (Auto) 1.6, Eos % (Auto) 0.0, Baso % (Auto) 0.2, Absolute Neuts (auto) 4.6, Absolute Lymphs (auto) 0.44 L, Nucleated RBC % 0, Differential Comment SCANNED 01/26/20 05:20: Sodium 136, Potassium 5.0, Chloride 105, Carbon Dioxide 30.0, Anion Gap 1 L, BUN 19 H, Creatinine 0.77, Estim Creat Clear Calc 33.52, Est GFR (MDRD) Af Amer 93, Est GFR (MDRD) Non-Af 77, BUN/Creatinine Ratio 24.6 H, Glucose 139 H, Calcium 9.6, Total Bilirubin 0.50, AST 28, ALT 17, Alkaline Phosphatase 63, Total Protein 7.3, Albumin 3.0 L, Globulin 4.3 H, Albumin/Globulin Ratio 0.7 L 01/26/20 07:50: PT 17.0 H, INR 1.4 Diagnostic Data Chest CTA 01/25/20 11:44 IMPRESSION: There is a large right hilar mass measuring 7.1 x 5.8 x 5.7 cm, encasing the right upper lobe bronchus and the right pulmonary artery resulted in severe stenosis of the right upper lobe bronchus and right upper lobe artery. There are filling defects in the segmental subsegmental branches in the posterior segment the right lung upper lobe suggesting pulmonary emboli. There is a left anterior nodule measures 2 cm may represent a metastatic lesion. Electronically Signed: Kris Ocampo, at 12:54 EDT Tel , Service support , Current Medications Acetaminophen (Tylenol) 650 mg PO Q6H PRN PRN PRN Reason: Pain Score 1-10/Temp > 100.7 F Albuterol Sulfate (Ventolin Aerosols) 2.5 mg INHALATION Q2H PRN PRN PRN Reason: DYSPNEA Albuterol/Ipratropium (Duoneb) 3 ml INHALATION Q4H.RT [facility] Last Admin: 01/26/20 07:44 Dose: 3 ml Documented by: Enoxaparin Sodium (Lovenox) 50 mg SC Q12@0600,1800 [facility] Last Admin: 01/26/20 05:43 Dose: 50 mg Documented by: Lisinopril (Zestril) 20 mg PO BID [facility] Last Admin: 01/26/20 09:55 Dose: 20 mg Documented by: Methylprednisolone (Solu-Medrol) 40 mg IV Q8 [facility] Last Admin: 01/26/20 05:43 Dose: 40 mg Documented by: Metoprolol Succinate (Toprol Xl (Beta Emmie)) 100 mg PO BID [facility] Last Admin: 01/26/20 09:55 Dose: 100 mg Documented by: Nifedipine (Procardia Xl) 30 mg PO DAILY [facility] Last Admin: 01/26/20 09:55 Dose: 30 mg Documented by: Nutritional Formula (Lactose Free) (Ensure Enlive) 120 ml PO 4X/DAY [facility] Sodium Chloride () 10 - 40 ml IV UD PRN PRN Reason: SALINE FLUSH Last Admin: 01/26/20 05:43 Dose: 20 ml Documented by: STROKE Vital Signs/Narrative: Vital Signs Pulse Resp BP BP Pulse Ox 01/26/20 09:55 86 126/86 H 01/26/20 09:00 84 18 126/86 H 88 01/26/20 07:56 93 01/26/20 07:45 73 19 H 92 01/26/20 07:13 73 01/26/20 07:00 75 16 125/31 H 90 Medical Necessity - Tobacco Use Smoking Status: Former smoker Tobacco Use: Cigarettes Assessment/Plan All Active Problems (Last Reviewed 12/02/19 @ 11:04 by Melissa Camarillo) Respiratory failure (Acute) Pulmonary emboli (Acute) Lung mass (Acute) Shortness of breath (Acute) Low pulse oximetry (Acute) Segmental and somatic dysfunction of lumbar region (Acute) Segmental and somatic dysfunction of pelvic region (Acute) Segmental and somatic dysfunction of thoracic region (Acute) Elevated high sensitivity C-reactive protein (Acute) Congenital cystic disease of kidney (Acute) Allergic rhinitis (Acute) Gout tophi (Acute) SOB (shortness of breath) on exertion (Acute) Bladder prolapse (Acute) Vitamin D deficiency (Acute) No history of previous surgery (Resolved) # Acute on chronic hypoxic respiratory failure Due to right-sided PE and lung mass. Also suspected that she may have an acute on chronic exacerbation of COPD. Currently on 7 L of oxygen by nasal cannula. Titrate oxygen to maintain saturation above 90%. On breathing treatment with bronchodilators. Pulmonology on board. Also on IV Solu-Medrol. #Right-sided PE: On subcu Lovenox. Likely due to right lung mass which is suspicious for malignancy in light of her surgery of chronic smoking. Pulmonology on board. 2D echo ordered. #Right-sided hilar mass: CTA of the chest on admission showed a right sided large hilar mass measuring about 7.1 x 5.8 x 5.7 cm encasing the right upper lobe bronchus and the right pulmonary artery resulting in severe stenosis of the right upper lobe bronchus and right upper lobe artery with an anterior left nodule of about 2 cm which may represent a metastatic lesion. She does have a history of chronic smoking though she quit several years ago. By pulmonology, to have bronchoscopy and biopsy and its to be best completed under general anesthesia in the OR given the patient's tenuous respiratory status. #Hypertension: On metoprolol and lisinopril as well as nifedipine. DVT prophylaxis: Already therapeutically anticoagulated on account of PE. Disposition: Transfer to PCU. Inpatient E&M: 13313 [facility] Hosp L3
--- NOTE | 2020-01-26 12:37 | CASEMGMT ---
RN MOON assessment: Face to Face with patient for initial transition planning/care coordination assessment. RN MOON introduced self and role at [facility], pt voices understanding and consents to assessment at this time. Pt is sitting up in chair in no distress at this time. Pt is A/Ox4 at this time and answers all questions appropriately at this time. Pt is currently on 10 liters nc at this time. Care providers, pharmacy, and demographics verified at this time. Presentation: Increased SOB x1 month, COVID neg 1 month ago Admitting dx: Right PE, A on C resp failure PCP: N[facility] Specialists: lore Powell [facility] [place] Insurance: [facility] Prescription Benefit: [facility] Living Will/HPOA: Pt states has LW/HPOA and states her daughter brought a copy in and placed on chart at this time. Per pt, she has a different set of papers for when she travels that lists her sig other as HPOA. Pt states her daughter, Lili Ingram, is HPOA for here in [place]. This RN CM checked the AD's brought in by daughter and the HPOA lists Joe Oneal as HPOA and pt updated at this time. Pt states that those are the wrong papers for here at hospital and requests them back at this time. Pt states she will call daughter and have her bring the other set in. Pt's LW left on chart at this time. LNOK: Lili Ingram, daughter Living Arrangements: Pt states lives either alone or sig other stays with her at her 1 story home and pt states no concerns at home at this time. Pt states is independent with ADL's. Transportation: Pt states sig other or family drives most of time and states no transportation concerns at this time. DME/HHC: Pt states has pulse ox and home oxygen thru [facility], [place], consisting of concentrator/portable concentrator. Pt states she has been on 4liters at home but states order is for 3liters continuous. Pt states Dr. Peace told her a week ago to increase to 4liters due to SOB. Call to [facility] [place] and per Rashmi, she states pt's most recent order is for 2liters continuous. CM to follow for increased home oxygen need. Pt states no hx of HHC or SNF in the past. Pt states no concerns with going home at time of discharge. Pt states is retired. Pt states quit smoking 11-12 yrs ago and states drinks 2 glasses of wine nightly. Pt states no further concerns/needs at this time. CM to follow for increased home oxygen and any further discharge planning/needs. Advised pt to ask for CM if any further questions/concerns/needs arise, voices understanding. Pt Goal: Home Plan: Home Kody ARELLANO CM
--- NOTE | 2020-01-26 16:06 | CHAPLAIN ---
Type of Pastoral Visit _x__ Initial Visit ___ Follow-up Visit ___ On-call Visit ___ General Patient Visit ___ Spiritual Assessment ___ Family Conference ___ Bereavement ___ Rapid Response ___ Code Blue ___ Other (describe below) Pastoral Care Referral From _x__ Patient ___ Family ___ Nurse ___ Physician ___ District Claims Manager ___ Earth Science Laboratory Technician ___ Other (describe below) Sacrament/Intervention _x__ Active listening ___ Anointing ___ Muslim ___ Bereavement ___ Communion ___ Selena exploration ___ _x__ Life review ___ Prayer ___ Reconciliation ___ Sacrament of Sick _x__ Supportive presence ___ Wedding ___ Other (describe below) Pastoral Comments was present with patient when the daughter of pt arrived; introduced self and role; offer of support welcomed especially since 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
[2020-01-27] VITALS (19 sets, daily range): BP systolic 122–142; BP diastolic 69–87; PULSE 61–91; RESP 16–86; TEMP 36.4–36.7; O2SAT 90–93
[2020-01-27] MEDS: Albuterol 2.5 MG/3 ML VIAL.NEB. INHALATION (04:33)
[2020-01-27] MEDS: 0.9% Saline Lock 10 ML Syringe IV ×4 (05:19→21:27)
[2020-01-27] MEDS: Enoxaparin 60 MG/0.6 ML Syringe 50 MG SC ×2 (05:20→17:37)
[2020-01-27 05:48] LABS: Absolute Lymphocyte Count 0.58 X10^3/uL (0.83-4.51); Absolute Neutrophil Count 8.9 X10^3/uL (2.0-7.7); Basophil# 0.01 X10^3/uL; Basophil% 0.1 % (0-1); Differential Indicated SCAN CRITERIA MET; Hematocrit 46.3 % (37-47); Hemoglobin 14.8 g/dL (12.0-15.0); Lymphocyte # 0.58 X10^3/ul (4.0); Lymphocyte % 5.9 % (19-41); Mean Platelet Vol. 9.1 fl (6.2-12.0); Monocyte# 0.29 X10^3/uL; NRBC Flagged by Analyzer 0 % (0-5); Neutrophil # 8.85 X10^3/uL (2.7-7.7); Neutrophil % 90.5 % (47-70); POSITIVE DIFFERENTIAL YES; Platelet Count 303 K/mm3 (150-450); RBC Distribution Width CV 13.1 % (11.6-14.6); RBC Distribution Width SD 47.6 fl (35.1-43.9); Red Blood Count 4.63 M/mm3 (4.2-5.4); White Blood Count 9.8 K/mm3 (4.4-11.0)
[2020-01-27 06:01] LABS: Anion Gap 3 (5-15); BUN 22 mg/dL (7-18); BUN/Creat Ratio 32.8 RATIO (10-20); Calcium,Total 9.4 mg/dL (8.5-10.1); Chloride 104 mmol/L (98-107); Creatinine, Serum 0.67 mg/dL (0.55-1.02); EST Glomerular Filtration Rate 90 mL/min (>60); Est Glom Filt Rate - Afr Amer 109 mL/min (>60); Estimated Creatinine Clearance 33.52 ml/min; Glucose 129 mg/dL (74-106); Potassium 4.1 mmol/L (3.5-5.1); Sodium Level 137 mmol/L (136-145)
[2020-01-27 06:08] LABS: Differential Comment SCANNED
[2020-01-27] MEDS: Furosemide 40 MG/4 ML Vial IV ×2 (06:53→16:51)
[2020-01-27] MEDS: Ipratropium/Albuterol Sulfate 3 ML AMPUL.NEB INHALATION ×5 (07:23→23:01)
--- NOTE | 2020-01-27 10:00 | PN_ITS ---
Patient Problems: Active and Suspected Problems (Last Reviewed 12/02/19 @ 11:04 by Melissa Camarillo) Respiratory failure (Acute) Pulmonary emboli (Acute) Lung mass (Acute) Shortness of breath (Acute) Low pulse oximetry (Acute) Subjective: The patient was seen and examined at the bedside this morning. Events from the last 24 hours have been reviewed. The patient is currently afebrile, hemodynamically stable and maintaining appropriate oxygen saturations on 8 L/min via nasal cannula. She remains short of breath, but denies the presence of a cough. She has not been out of bed yet today and has only been using her incentive spirometer sparingly. Objective: The patient's most recent lab work, culture data and imaging studies have all been personally reviewed. Surface echocardiogram revealed normal LV size and function with an ejection fraction of 70%. Diastolic function was indeterminate. The RV was mildly dilated with normal systolic function. Right ventricular systolic pressure was estimated to be 86 mmHg. Respiratory viral panel was negative. Blood cultures have shown no growth to date. - Physical Exam Vitals/I&O's: Vital Signs Temp Pulse Resp BP Pulse Ox 97.6 F L 81 18 131/84 H 91 01/27/20 04:50 01/27/20 07:37 01/27/20 07:23 01/27/20 04:50 01/27/20 07:23 Oxygen Flow Rate (L/min) 9 Oxygen Delivery Method Nasal Cannula Weight: 100 lb 15.547 oz Body Mass Index (BMI) 20.7 Intake and Output for Last 24 Hours 01/25/20 01/26/20 01/27/20 23:59 23:59 23:59 Intake Total 220 / 220 1320 / 1320 50 / 50 Output Total 175 / 175 250 / 250 Balance 45 / 45 1070 / 1070 50 / 50 General: Alert, Oriented x3, Cooperative, No apparent distress HEENT: Atraumatic, PERRLA, Normocephalic Oral: Moist Mucosa, No Gingival or Mucosal Lesions/ Ulcerations Neck: Supple, No Nodes, Trachea Midline Lungs: No rhonchi, No wheeze, No rales, Diminished Cardiovascular: Regular rate, Regular Rhythm Abdomen: Bowel Sounds Present, Soft, Non Tender Extremities: No clubbing, No cyanosis, No edema Skin: No breakdown Musculoskeletal: No Tenderness to Palpation of Joints or Extremities, No Muscle Wasting Lymphatic: No Cervical, Supraclavicular, or Inguinal Adenopathy Neurological: Cranial nerves II-XII grossly intact, Neuro grossly intact Psych/Mental Status: Normal Affect, Appropriate Labs (Last 48 Hours) 01/25/20 01/25/20 01/25/20 11:10 11:10 11:10 WBC 7.1 RBC 4.70 Hgb 15.1 H Hct 47.4 H MCV 100.9 H MCH 32.1 H MCHC 31.9 L RDW Std Deviation 49.5 H RDW Coeff of Denis 13.3 Plt Count 290 MPV 8.9 Immature Gran % (Auto) 0.400 Neut % (Auto) 79.5 H Lymph % (Auto) 13.2 L Pinal % (Auto) 6.1 Eos % (Auto) 0.4 Baso % (Auto) 0.4 Absolute Neuts (auto) 5.6 Absolute Lymphs (auto) 0.93 Nucleated RBC % 0 Differential Comment PT INR APTT D-Dimer Quant (PE/DVT) 0.83 H* Sodium 138 Potassium 4.0 Chloride 103 Carbon Dioxide 30.0 Anion Gap 5 BUN 12 Creatinine 0.74 Estim Creat Clear Calc 33.20 Est GFR (MDRD) Af Amer 98 Est GFR (MDRD) Non-Af 81 BUN/Creatinine Ratio 16.3 Glucose 91 Lactic Acid Calcium 9.8 Total Bilirubin 0.60 Direct Bilirubin 0.20 AST 18 ALT 15 Alkaline Phosphatase 74 Troponin I 0.032 Total Protein 8.3 H Albumin 3.5 Globulin 4.8 H Albumin/Globulin Ratio COVID-19 (MEI) 01/25/20 01/25/20 01/25/20 11:10 11:10 11:10 WBC RBC Hgb Hct MCV MCH MCHC RDW Std Deviation RDW Coeff of Denis Plt Count MPV Immature Gran % (Auto) Neut % (Auto) Lymph % (Auto) Pinal % (Auto) Eos % (Auto) Baso % (Auto) Absolute Neuts (auto) Absolute Lymphs (auto) Nucleated RBC % Differential Comment PT INR APTT 34.8 D-Dimer Quant (PE/DVT) Sodium Potassium Chloride Carbon Dioxide Anion Gap BUN Creatinine Estim Creat Clear Calc Est GFR (MDRD) Af Amer Est GFR (MDRD) Non-Af BUN/Creatinine Ratio Glucose Lactic Acid 1.4 Calcium Total Bilirubin Direct Bilirubin AST ALT Alkaline Phosphatase Troponin I Total Protein Albumin Globulin Albumin/Globulin Ratio COVID-19 (MEI) Not Detected 01/26/20 01/26/20 01/26/20 05:20 05:20 07:50 WBC 5.2 RBC 4.64 Hgb 14.5 Hct 45.6 MCV 98.3 MCH 31.3 MCHC 31.8 L RDW Std Deviation 47.5 H RDW Coeff of Denis 13.2 Plt Count 282 MPV 9.1 Immature Gran % (Auto) 0.600 Neut % (Auto) 89.1 H Lymph % (Auto) 8.5 L Pinal % (Auto) 1.6 Eos % (Auto) 0.0 Baso % (Auto) 0.2 Absolute Neuts (auto) 4.6 Absolute Lymphs (auto) 0.44 L Nucleated RBC % 0 Differential Comment SCANNED PT 17.0 H INR 1.4 APTT D-Dimer Quant (PE/DVT) Sodium 136 Potassium 5.0 Chloride 105 Carbon Dioxide 30.0 Anion Gap 1 L BUN 19 H Creatinine 0.77 Estim Creat Clear Calc 33.52 Est GFR (MDRD) Af Amer 93 Est GFR (MDRD) Non-Af 77 BUN/Creatinine Ratio 24.6 H Glucose 139 H Lactic Acid Calcium 9.6 Total Bilirubin 0.50 Direct Bilirubin AST 28 ALT 17 Alkaline Phosphatase 63 Troponin I Total Protein 7.3 Albumin 3.0 L Globulin 4.3 H Albumin/Globulin Ratio 0.7 L COVID-19 (MEI) 01/27/20 01/27/20 05:24 05:24 WBC 9.8 RBC 4.63 Hgb 14.8 Hct 46.3 MCV 100.0 H MCH 32.0 MCHC 32.0 RDW Std Deviation 47.6 H RDW Coeff of Denis 13.1 Plt Count 303 MPV 9.1 Immature Gran % (Auto) 0.500 Neut % (Auto) 90.5 H Lymph % (Auto) 5.9 L Pinal % (Auto) 3.0 Eos % (Auto) 0.0 Baso % (Auto) 0.1 Absolute Neuts (auto) 8.9 H Absolute Lymphs (auto) 0.58 L Nucleated RBC % 0 Differential Comment SCANNED PT INR APTT D-Dimer Quant (PE/DVT) Sodium 137 Potassium 4.1 Chloride 104 Carbon Dioxide 30.0 Anion Gap 3 L BUN 22 H Creatinine 0.67 Estim Creat Clear Calc 33.52 Est GFR (MDRD) Af Amer 109 Est GFR (MDRD) Non-Af 90 BUN/Creatinine Ratio 32.8 H Glucose 129 H Lactic Acid Calcium 9.4 Total Bilirubin Direct Bilirubin AST ALT Alkaline Phosphatase Troponin I Total Protein Albumin Globulin Albumin/Globulin Ratio COVID-19 (MEI) Microbiology 01/25/20 11:11 Blood Culture (Wb) - Anticubital Right Blood Culture - Preliminary No growth in 48 hours. 01/25/20 11:11 Blood Culture (Wb) - Anticubital Left Blood Culture - Preliminary No growth in 48 hours. 01/26/20 07:45 Interface Orders Respiratory Panel (PCR) - Final Clinical Impression(s) from Imaging Studies Chest CTA 01/25/20 11:44 IMPRESSION: There is a large right hilar mass measuring 7.1 x 5.8 x 5.7 cm, encasing the right upper lobe bronchus and the right pulmonary artery resulted in severe stenosis of the right upper lobe bronchus and right upper lobe artery. There are filling defects in the segmental subsegmental branches in the posterior segment the right lung upper lobe suggesting pulmonary emboli. There is a left anterior nodule measures 2 cm may represent a metastatic lesion. Electronically Signed: Ponce Terrence, at 12:54 EDT Tel , Service support , Current Medications Acetaminophen (Tylenol) 650 mg PO Q6H PRN PRN PRN Reason: Pain Score 1-10/Temp > 100.7 F Albuterol Sulfate (Ventolin Aerosols) 2.5 mg INHALATION Q2H PRN PRN PRN Reason: DYSPNEA Last Admin: 01/27/20 04:33 Dose: 2.5 mg Documented by: Albuterol/Ipratropium (Duoneb) 3 ml INHALATION Q4H.RT [facility] Last Admin: 01/27/20 07:23 Dose: 3 ml Documented by: Enoxaparin Sodium (Lovenox) 50 mg SC Q12@0600,1800 [facility] Last Admin: 01/27/20 05:20 Dose: 50 mg Documented by: Lisinopril (Zestril) 20 mg PO BID [facility] Last Admin: 01/26/20 21:35 Dose: 20 mg Documented by: Methylprednisolone (Solu-Medrol) 40 mg IV Q8 [facility] Last Admin: 01/27/20 05:20 Dose: 40 mg Documented by: Metoprolol Succinate (Toprol Xl (Beta Emmie)) 100 mg PO BID [facility] Last Admin: 01/26/20 21:35 Dose: 100 mg Documented by: Nifedipine (Procardia Xl) 30 mg PO DAILY [facility] Last Admin: 01/26/20 09:55 Dose: 30 mg Documented by: Nutritional Formula (Lactose Free) (Ensure Enlive) 120 ml PO 4X/DAY [facility] Last Admin: 01/26/20 21:35 Dose: Not Given Documented by: Sodium Chloride () 10 - 40 ml IV UD PRN PRN Reason: SALINE FLUSH Last Admin: 01/27/20 06:53 Dose: 10 ml Documented by: Medical Necessity - Tobacco Use Smoking Status: Former smoker Tobacco Use: Cigarettes Assessment/Plan All Active Problems (Last Reviewed 12/02/19 @ 11:04 by Melissa Camarillo) Respiratory failure (Acute) Pulmonary emboli (Acute) Lung mass (Acute) Shortness of breath (Acute) Low pulse oximetry (Acute) Segmental and somatic dysfunction of lumbar region (Acute) Segmental and somatic dysfunction of pelvic region (Acute) Segmental and somatic dysfunction of thoracic region (Acute) Elevated high sensitivity C-reactive protein (Acute) Congenital cystic disease of kidney (Acute) Allergic rhinitis (Acute) Gout tophi (Acute) SOB (shortness of breath) on exertion (Acute) Bladder prolapse (Acute) Vitamin D deficiency (Acute) No history of previous surgery (Resolved) RECOMMENDATIONS: 1. Wean supplemental oxygen to maintain saturations at or above 88%. 2. Continue scheduled bronchodilator therapy and IV steroids. 3. Continue Lovenox as ordered. 4. Attempt gentle diuresis as tolerated by hemodynamics and renal function. 5. Encourage incentive spirometer use and mobilize patient as tolerated. 6. Recommend bronchoscopic airway evaluation to facilitate needle biopsy of the patient's right hilar lung mass. IMPRESSIONS: 1. Acute on chronic hypoxemic respiratory failure The patient previously was noted to have a 3 L/min baseline oxygen requirement. [place], the patient has noted worsening in her breathing quality. She has been treated with antibiotics and steroids by her PCP with little overall improvement in her respiratory status. Subsequent work-up in the emergency department did reveal evidence of pulmonary emboli along with a large right hilar lung mass exerting a mass-effect on the right- sided tracheobronchial tree and pulmonary vasculature. This is highly suspicious for underlying malignancy. Although reluctant, the patient seems agreeable to proceeding with bronchoscopy and biopsy. For safety reasons, this would likely be best completed under general anesthesia in the OR, given the patient's tenuous respiratory status. This can likely be arranged next week on an outpatient basis. In the interim, the patient supplemental oxygen will be w eaned and she will be continued on systemic anticoagulation. Scheduled bronchodilator therapy will be continued along with IV steroids. Given that the patient does have pulmonary hypertension on echocardiogram, will attempt gentle diuresis as tolerated by hemodynamics and renal function. 2. Right hilar lung mass Management as noted above with plans for bronchoscopy and biopsy, likely to be scheduled next week on outpatient basis under general anesthesia. 3. 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 Continue home medications as indicated. This note was generated with [employer] dictation software. It may contain incorrect words, spelling, and punctuation that were not noted in checking the note before signing. Inpatient E&M: 25630 Subs Hosp L2
[2020-01-27] MEDS: Metoprolol(XL)Succ 100 MG Tablet PO ×2 (11:29→21:26)
[2020-01-27] MEDS: NIFEdipine 30 MG Tablet PO (11:29)
[2020-01-27] MEDS: Lisinopril 20 MG Tablet PO ×2 (11:29→21:26)
--- NOTE | 2020-01-27 11:30 | PN_ITS ---
Patient Problems: Active and Suspected Problems (Last Reviewed 12/02/19 @ 11:04 by Melissa Camarillo) Respiratory failure (Acute) Pulmonary emboli (Acute) Lung mass (Acute) Shortness of breath (Acute) Low pulse oximetry (Acute) Subjective: Patient seen and examined. She had no complaints this morning and felt well. She denied feeling short of breath and so she felt her breathing was the same. She denied any nausea vomiting or chest pain. Patient is however up to 9 L of oxygen now high flow nasal cannula. She has remained otherwise hemodynamically stable. Vitals/I&O's: Vital Signs Temp Pulse Resp BP Pulse Ox 97.7 F L 74 18 127/69 H 90 01/27/20 10:15 01/27/20 11:29 01/27/20 10:15 01/27/20 10:15 01/27/20 10:15 Oxygen Flow Rate (L/min) 9 Oxygen Delivery Method Nasal Cannula Weight: 100 lb 15.547 oz Body Mass Index (BMI) 20.7 Intake and Output for Last 24 Hours 01/25/20 01/26/20 01/27/20 23:59 23:59 23:59 Intake Total 220 / 220 1320 / 1320 50 / 50 Output Total 175 / 175 250 / 250 Balance 45 / 45 1070 / 1070 50 / 50 General: Alert, Oriented x3, Cooperative HEENT: Atraumatic, PERRLA, EOMI, Normocephalic Oral: Dry Mucosa Neck: Supple, No JVD, Negative Carotid Bruits Lungs: - - diminished breath sounds bibasally, no wheezes or crackles. on 9L of oxygen by nasal canula Cardiovascular: Regular rate, Regular Rhythm, Normal S1, Normal S2, No murmurs Abdomen: Bowel Sounds Present, Soft, Non Tender, Non-Distended, No Hepato- splenomegaly Extremities: No clubbing, No cyanosis, No edema, Capillary Refill Less than 3 Seconds Skin: No rashes, No breakdown Musculoskeletal: No Tenderness to Palpation of Joints or Extremities Lymphatic: No Cervical, Supraclavicular, or Inguinal Adenopathy Neurological: Cranial nerves II-XII grossly intact, Neuro grossly intact, Motor Exam 5/5 strength throughout Psych/Mental Status: Normal Affect, Appropriate, Alert and oriented to time, place, person, mood and affect Microbiology Past 72 Hours 01/25/20 11:11 Blood Culture (Wb) - Anticubital Right Blood Culture - Preliminary No growth in 48 hours. 01/25/20 11:11 Blood Culture (Wb) - Anticubital Left Blood Culture - Preliminary No growth in 48 hours. 01/26/20 07:45 Interface Orders Respiratory Panel (PCR) - Final Laboratory Results 01/27/20 05:24: WBC 9.8, RBC 4.63, Hgb 14.8, Hct 46.3, MCV 100.0 H, MCH 32.0, MCHC 32.0, RDW Std Deviation 47.6 H, RDW Coeff of Denis 13.1, Plt Count 303, MPV 9.1, Immature Gran % (Auto) 0.500, Neut % (Auto) 90.5 H, Lymph % (Auto) 5.9 L, Gooding % (Auto) 3.0, Eos % (Auto) 0.0, Baso % (Auto) 0.1, Absolute Neuts (auto) 8.9 H, Absolute Lymphs (auto) 0.58 L, Nucleated RBC % 0, Differential Comment SCANNED 01/27/20 05:24: Sodium 137, Potassium 4.1, Chloride 104, Carbon Dioxide 30.0, Anion Gap 3 L, BUN 22 H, Creatinine 0.67, Estim Creat Clear Calc 33.52, Est GFR (MDRD) Af Amer 109, Est GFR (MDRD) Non-Af 90, BUN/Creatinine Ratio 32.8 H, Glucose 129 H, Calcium 9.4 Diagnostic Data Chest CTA 01/25/20 11:44 IMPRESSION: There is a large right hilar mass measuring 7.1 x 5.8 x 5.7 cm, encasing the right upper lobe bronchus and the right pulmonary artery resulted in severe stenosis of the right upper lobe bronchus and right upper lobe artery. There are filling defects in the segmental subsegmental branches in the posterior segment the right lung upper lobe suggesting pulmonary emboli. There is a left anterior nodule measures 2 cm may represent a metastatic lesion. Electronically Signed: Kris Ocampo, at 12:54 EDT Tel , Service support , Current Medications Acetaminophen (Tylenol) 650 mg PO Q6H PRN PRN PRN Reason: Pain Score 1-10/Temp > 100.7 F Albuterol Sulfate (Ventolin Aerosols) 2.5 mg INHALATION Q2H PRN PRN PRN Reason: DYSPNEA Last Admin: 01/27/20 04:33 Dose: 2.5 mg Documented by: Albuterol/Ipratropium (Duoneb) 3 ml INHALATION Q4H.RT [facility] Last Admin: 01/27/20 10:52 Dose: 3 ml Documented by: Enoxaparin Sodium (Lovenox) 50 mg SC Q12@0600,1800 [facility] Last Admin: 01/27/20 05:20 Dose: 50 mg Documented by: Lisinopril (Zestril) 20 mg PO BID [facility] Last Admin: 01/27/20 11:29 Dose: 20 mg Documented by: Methylprednisolone (Solu-Medrol) 40 mg IV Q8 [facility] Last Admin: 01/27/20 05:20 Dose: 40 mg Documented by: Metoprolol Succinate (Toprol Xl (Beta Emmie)) 100 mg PO BID [facility] Last Admin: 01/27/20 11:29 Dose: 100 mg Documented by: Nifedipine (Procardia Xl) 30 mg PO DAILY [facility] Last Admin: 01/27/20 11:29 Dose: 30 mg Documented by: Nutritional Formula (Lactose Free) (Ensure Enlive) 120 ml PO 4X/DAY [facility] Last Admin: 01/27/20 11:28 Dose: Not Given Documented by: Sodium Chloride () 10 - 40 ml IV UD PRN PRN Reason: SALINE FLUSH Last Admin: 01/27/20 06:53 Dose: 10 ml Documented by: STROKE Vital Signs/Narrative: Vital Signs Temp Pulse Resp BP Pulse Ox 01/27/20 11:29 74 01/27/20 10:15 97.7 F L 74 18 127/69 H 90 01/27/20 07:37 81 Medical Necessity - Tobacco Use Smoking Status: Former smoker Tobacco Use: Cigarettes Assessment/Plan All Active Problems (Last Reviewed 12/02/19 @ 11:04 by Melissa Camarillo) Respiratory failure (Acute) Pulmonary emboli (Acute) Lung mass (Acute) Shortness of breath (Acute) Low pulse oximetry (Acute) Segmental and somatic dysfunction of lumbar region (Acute) Segmental and somatic dysfunction of pelvic region (Acute) Segmental and somatic dysfunction of thoracic region (Acute) Elevated high sensitivity C-reactive protein (Acute) Congenital cystic disease of kidney (Acute) Allergic rhinitis (Acute) Gout tophi (Acute) SOB (shortness of breath) on exertion (Acute) Bladder prolapse (Acute) Vitamin D deficiency (Acute) No history of previous surgery (Resolved) # Acute on chronic hypoxic respiratory failure * Due to right-sided PE and lung mass which is constricting the right main bronchus and right pulmonary artery. Also suspected that she may have an acute on chronic exacerbation of COPD. * Currently on 9 L of oxygen by nasal cannula. * Titrate oxygen to maintain saturation above 90%. * On breathing treatment with bronchodilators. * 2D echo done showed EF of 70%, with normal LV size and systolic function, with mildly dilated RV adn RVSP of 86mmhg * Pulmonology on board. Also on IV Solu-Medrol. * #Right-sided PE: * On subcu Lovenox. Likely due to right lung mass which is suspicious for malignancy in light of her surgery of chronic smoking. * Pulmonology on board. * 2D echo as above. # Pulmonary hypertension * As under echo above. Patient being started on gentle diuresis. * #Right-sided hilar mass: * CTA of the chest on admission showed a right sided large hilar mass measuring about 7.1 x 5.8 x 5.7 cm encasing the right upper lobe bronchus and the right pulmonary artery resulting in severe stenosis of the right upper lobe bronchus and right upper lobe artery with an anterior left nodule of about 2 cm which may represent a metastatic lesion. * She does have a history of chronic smoking though she quit several years ago. * By pulmonology, to have bronchoscopy and biopsy and its to be best completed under general anesthesia in the OR given the patient's tenuous respiratory status. * #Hypertension: On metoprolol and lisinopril as well as nifedipine. DVT prophylaxis: Already therapeutically anticoagulated on account of PE. Inpatient E&M: 24068 [facility] Hosp L3
[2020-01-28] VITALS (22 sets, daily range): BP systolic 123–157; BP diastolic 68–89; PULSE 63–90; RESP 16–24; TEMP 36.6–36.9; O2SAT 80–95
[2020-01-28] MEDS: 0.9% Saline Lock 10 ML Syringe IV ×5 (05:19→21:10)
[2020-01-28] MEDS: Enoxaparin 60 MG/0.6 ML Syringe 50 MG SC ×2 (05:19→17:15)
[2020-01-28] MEDS: Ipratropium/Albuterol Sulfate 3 ML AMPUL.NEB INHALATION ×5 (07:01→23:23)
[2020-01-28 07:14] LABS: Anion Gap 4 (5-15); BUN 25 mg/dL (7-18); BUN/Creat Ratio 31.1 RATIO (10-20); Calcium,Total 9.9 mg/dL (8.5-10.1); Chloride 102 mmol/L (98-107); EST Glomerular Filtration Rate 73 mL/min (>60); Est Glom Filt Rate - Afr Amer 89 mL/min (>60); Estimated Creatinine Clearance 41.54 ml/min; Glucose 114 mg/dL (74-106); Potassium 3.9 mmol/L (3.5-5.1); Sodium Level 137 mmol/L (136-145)
--- NOTE | 2020-01-28 09:05 | PN_ITS ---
Patient Problems: Active and Suspected Problems (Last Reviewed 12/02/19 @ 11:04 by Melissa Camarillo) Respiratory failure (Acute) Pulmonary emboli (Acute) Lung mass (Acute) Shortness of breath (Acute) Low pulse oximetry (Acute) Subjective: The patient was seen and examined at the bedside this morning. Events from the last 24 hours have been reviewed. The patient is currently afebrile, hemodynamically stable and maintaining appropriate oxygen saturations on 5 L/min via nasal cannula. The patient was started on Lasix yesterday. Urine output and creatinine are stable. The patient denies any resting shortness of breath. Objective: The patient's most recent lab work, culture data and imaging studies have all been personally reviewed. Surface echocardiogram revealed normal LV size and function with an ejection fraction of 70%. Diastolic function was indeterminate. The RV was mildly dilated with normal systolic function. Right ventricular systolic pressure was estimated to be 86 mmHg. Respiratory viral panel was negative. Blood cultures have shown no growth to date. - Physical Exam Vitals/I&O's: Vital Signs Temp Pulse Resp BP Pulse Ox 98.4 F 69 18 144/80 H 90 01/28/20 06:57 01/28/20 06:57 01/28/20 06:57 01/28/20 06:57 01/28/20 06:57 Oxygen Flow Rate (L/min) 6 Oxygen Delivery Method Nasal Cannula Weight: 100 lb 1.438 oz Body Mass Index (BMI) 20.7 Intake and Output for Last 24 Hours 01/26/20 01/27/20 01/28/20 23:59 23:59 23:59 Intake Total 1320 / 1320 540 / 900 480 / 480 Output Total 250 / 250 1500 / 2200 1000 / 1000 Balance 1070 / 1070 -960 / -1300 -520 / -520 General: Alert, Cooperative, No apparent distress, - - Sitting in bedside recliner, eating lunch. HEENT: Atraumatic, PERRLA, Normocephalic Oral: No Gingival or Mucosal Lesions/ Ulcerations Neck: Supple, No Nodes, Trachea Midline Lungs: Diminished Cardiovascular: Regular rate, Regular Rhythm, Normal S1, Normal S2, No murmurs Abdomen: Bowel Sounds Present, Soft, Non Tender Extremities: No clubbing, No cyanosis, No edema Skin: No breakdown Musculoskeletal: No Tenderness to Palpation of Joints or Extremities, No Muscle Wasting Lymphatic: No Cervical, Supraclavicular, or Inguinal Adenopathy Neurological: Cranial nerves II-XII grossly intact, Neuro grossly intact Psych/Mental Status: Alert and oriented to time, place, person, mood and affect Labs (Last 48 Hours) 01/27/20 01/27/20 01/28/20 05:24 05:24 05:56 WBC 9.8 RBC 4.63 Hgb 14.8 Hct 46.3 MCV 100.0 H MCH 32.0 MCHC 32.0 RDW Std Deviation 47.6 H RDW Coeff of Denis 13.1 Plt Count 303 MPV 9.1 Immature Gran % (Auto) 0.500 Neut % (Auto) 90.5 H Lymph % (Auto) 5.9 L Travis % (Auto) 3.0 Eos % (Auto) 0.0 Baso % (Auto) 0.1 Absolute Neuts (auto) 8.9 H Absolute Lymphs (auto) 0.58 L Nucleated RBC % 0 Differential Comment SCANNED Sodium 137 137 Potassium 4.1 3.9 Chloride 104 102 Carbon Dioxide 30.0 31.0 Anion Gap 3 L 4 L BUN 22 H 25 H Creatinine 0.67 0.80 Estim Creat Clear Calc 33.52 41.54 Est GFR (MDRD) Af Amer 109 89 Est GFR (MDRD) Non-Af 90 73 BUN/Creatinine Ratio 32.8 H 31.1 H Glucose 129 H 114 H Calcium 9.4 9.9 Microbiology 01/25/20 11:11 Blood Culture (Wb) - Anticubital Right Blood Culture - Preliminary No growth in 48 hours. 01/25/20 11:11 Blood Culture (Wb) - Anticubital Left Blood Culture - Preliminary No growth in 48 hours. 01/26/20 07:45 Interface Orders Respiratory Panel (PCR) - Final Clinical Impression(s) from Imaging Studies Chest CTA 01/25/20 11:44 IMPRESSION: There is a large right hilar mass measuring 7.1 x 5.8 x 5.7 cm, encasing the right upper lobe bronchus and the right pulmonary artery resulted in severe stenosis of the right upper lobe bronchus and right upper lobe artery. There are filling defects in the segmental subsegmental branches in the posterior segment the right lung upper lobe suggesting pulmonary emboli. There is a left anterior nodule measures 2 cm may represent a metastatic lesion. Electronically Signed: Kris Ocampo, at 12:54 EDT Tel , Service support , Current Medications Acetaminophen (Tylenol) 650 mg PO Q6H PRN PRN PRN Reason: Pain Score 1-10/Temp > 100.7 F Albuterol Sulfate (Ventolin Aerosols) 2.5 mg INHALATION Q2H PRN PRN PRN Reason: DYSPNEA Last Admin: 01/27/20 04:33 Dose: 2.5 mg Documented by: Albuterol/Ipratropium (Duoneb) 3 ml INHALATION Q4H.RT [facility] Last Admin: 01/28/20 07:01 Dose: 3 ml Documented by: Enoxaparin Sodium (Lovenox) 50 mg SC Q12@0600,1800 [facility] Last Admin: 01/28/20 05:19 Dose: 50 mg Documented by: Furosemide (Lasix) 40 mg IV BID@1000,1800 [facility] Furosemide (Lasix) 40 mg IV X1 ONE Stop: 01/28/20 10:01 Lisinopril (Zestril) 20 mg PO BID [facility] Last Admin: 01/27/20 21:26 Dose: 20 mg Documented by: Methylprednisolone (Solu-Medrol) 40 mg IV Q8 [facility] Last Admin: 01/28/20 05:19 Dose: 40 mg Documented by: Metoprolol Succinate (Toprol Xl (Beta Emmie)) 100 mg PO BID [facility] Last Admin: 01/27/20 21:26 Dose: 100 mg Documented by: Nifedipine (Procardia Xl) 30 mg PO DAILY [facility] Last Admin: 01/27/20 11:29 Dose: 30 mg Documented by: Nutritional Formula (Lactose Free) (Ensure Enlive) 120 ml PO 4X/DAY [facility] Last Admin: 01/27/20 21:26 Dose: Not Given Documented by: Sodium Chloride () 10 - 40 ml IV UD PRN PRN Reason: SALINE FLUSH Last Admin: 01/28/20 05:19 Dose: 10 ml Documented by: Medical Necessity - Tobacco Use Smoking Status: Former smoker Tobacco Use: Cigarettes Assessment/Plan All Active Problems (Last Reviewed 12/02/19 @ 11:04 by Melissa Camarillo) Respiratory failure (Acute) Pulmonary emboli (Acute) Lung mass (Acute) Shortness of breath (Acute) Low pulse oximetry (Acute) Segmental and somatic dysfunction of lumbar region (Acute) Segmental and somatic dysfunction of pelvic region (Acute) Segmental and somatic dysfunction of thoracic region (Acute) Elevated high sensitivity C-reactive protein (Acute) Congenital cystic disease of kidney (Acute) Allergic rhinitis (Acute) Gout tophi (Acute) SOB (shortness of breath) on exertion (Acute) Bladder prolapse (Acute) Vitamin D deficiency (Acute) No history of previous surgery (Resolved) RECOMMENDATIONS: 1. Wean supplemental oxygen to maintain saturations at or above 88%. 2. Continue scheduled bronchodilator therapy. 3. Okay to transition to prednisone 40 mg daily with plans for a taper at discharge. 4. Continue gentle diuresis as tolerated. 5. Okay to transition the patient from Lovenox to either Eliquis or Xarelto for discharge planning. 6. Encourage incentive spirometer use and mobilize patient as tolerated. 7. Timing for bronchoscopy will be discussed with Dr. Powell and likely scheduled for next week. 8. If the patient is able to maintain appropriate oxygen saturations on 6 L/min or less of supplemental oxygen, she can be discharged home. IMPRESSIONS: 1. Acute on chronic hypoxemic respiratory failure The patient previously was noted to have a 3 L/min baseline oxygen requirement. Upon return from a trip out [place] in November, the patient has noted worsening in her breathing quality. She has been treated with antibiotics and steroids by her PCP with little overall improvement in her respiratory status. Subsequent work-up in the emergency department did reveal evidence of pulmonary emboli along with a large right hilar lung mass exerting a mass-effect on the right- sided tracheobronchial tree and pulmonary vasculature. This is highly suspicious for underlying malignancy. Although reluctant, the patient seems agreeable to proceeding with bronchoscopy and biopsy. For safety reasons, this would likely be best completed under general anesthesia in the OR, given the patient's tenuous respiratory status. This can likely be arranged next week on an outpatient basis. In the interim, the patient supplemental oxygen will be weaned and she will be continued on systemic anticoagulation. Scheduled bronchodilator therapy will be continued along steroids. Given that the patient does have pulmonary hypertension on echocardiogram, gentle diuresis will be continued as tolerated by hemodynamics and renal function. 2. Right hilar lung mass Management as noted above with plans for bronchoscopy and biopsy, likely to be scheduled next week on outpatient basis under general anesthesia. 3. 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 Continue home medications as indicated. This note was generated with [employer] dictation software. It may contain incorrect words, spelling, and punctuation that were not noted in checking the note before signing. Inpatient E&M: 12694 [facility] Hosp L2
[2020-01-28] MEDS: Metoprolol(XL)Succ 100 MG Tablet PO ×2 (09:07→21:08)
[2020-01-28] MEDS: NIFEdipine 30 MG Tablet PO (09:07)
[2020-01-28] MEDS: Lisinopril 20 MG Tablet PO ×2 (09:07→21:08)
[2020-01-28] MEDS: Furosemide 40 MG/4 ML Vial IV ×2 (09:08→17:20)
--- NOTE | 2020-01-28 13:04 | NURSING ---
Pt 80% on RA, 84% on 4LNC at rest, 81% on 4LNC walking, 85% on 8LNC. Pt requiring 15LNC while up to maintain >88%.
--- NOTE | 2020-01-28 13:12 | NURSING ---
Pt dropped to 80% on RA, 85% ON 4LNC at rest, 82% on 4LNC walking, 88% on 8LNC walking
--- NOTE | 2020-01-28 13:25 | DCINST_ITS ---
- Discharge Diagnoses Current Active Problems: Current Active and Chronic Problems (Last Reviewed 12/02/19 @ 11:04 by Melissa Camarillo) Respiratory failure (Acute) Pulmonary emboli (Acute) Lung mass (Acute) Shortness of breath (Acute) Low pulse oximetry (Acute) You will use the following diet at home:: Cardiac Your food should be the consistency of: Regular Your liquids should be the consistency of: Regular/Thin Discharge Activity: Return to Normal Activity Weight Bearing Status: Weight bearing as tolerated Call your doctor if you observe: Shortness of breath, Dizziness, Fainting spells, Swelling in the ankles, Chest pain, Increased palpitations (irregular heartbeat) Instructions: ED Heart Disease Risk Factors, Pulmonary Embolism, Using Oxygen Safely, Using Oxygen at Home Additional Instructions: use oxygen as needed for shortness of breath. Will need to stop eliquis 48 hours before scheduled bronchosopy and biopsy. Dr Powell's office will call to inform you about date for bronchoscopy and biopsy Allergies/Adverse Reactions: Allergies codeine Adverse Reaction (Severe, Verified 11/18/19 10:28) Vomiting MOST PAIN MEDS Adverse Reaction (Uncoded 01/25/20 10:40) Vomiting Medications to take at Discharge Albuterol Inhaler [Ventolin Hfa] 1 - 2 puff INHALATION Q4H PRN PRN 07/27/19 Lisinopril [Zestril] 20 mg PO BID 07/27/19 Metoprolol(XL)Succ [Toprol Xl (Beta Emmie)] 100 mg PO BID 07/27/19 Nifedipine [Procardia Xl] 30 mg PO DAILY 07/27/19 tiotropium 2.5 mcg-olodaterol 2.5 mcg/actuation mist for inhalation 2 puff INHALATION DAILY 08/03/19 Albuterol Aerosols [Ventolin Aerosols] 2.5 mg INHALATION Q4H PRN PRN 01/25/20 Calcium Carbonate/Vitamin D3 [Calcium 600-Vit D3 200 Tablet] 1 tab PO DAILY 01/25/20 Denosumab [Prolia] 60 mg IM .[id number] 01/25/20 Apixaban [Eliquis] 5 mg PO UD #60 tab 01/28/20 Furosemide [Lasix] 40 mg PO DAILY 1 Days #30 tab 01/28/20 predniSONE tablet 40 mg PO DAILY #10 tab 01/28/20 The following prescriptions were given: Apixaban [Eliquis] 5 mg PO UD #60 tab [facility]: [facility] Furosemide [Lasix] 40 mg PO DAILY 1 Days #30 tab [facility] predniSONE tablet 40 mg PO DAILY #10 tab Transmission Status: Received by [facility] Primary Care Physician: Yasmin Peace MD [Primary Care Provider] - Please follow up with your Primary Care Physician in: 1-2 weeks Test Results: Test results from this visit will be discussed in further detail at your follow- up appointment, if applicable. Please Follow Up With: Lv Powell MD When: 1-2 weeks Proposed Discharge Date: 01/28/20
--- NOTE | 2020-01-28 13:34 | DS.PCM_ITS ---
Discharge Date and Diagnosis - Problem List Patient Problems: Active and Suspected Problems (Last Reviewed 12/02/19 @ 11:04 by Melissa Camarillo) Respiratory failure (Acute) Pulmonary emboli (Acute) Lung mass (Acute) Shortness of breath (Acute) Low pulse oximetry (Acute) Date of Admission: 01/25/20 - Primary Discharge Diagnosis Acute Problems: Active Problems (Last Reviewed 12/02/19 @ 11:04 by Melissa Camarillo) Respiratory failure (Acute) Pulmonary emboli (Acute) Lung mass (Acute) Shortness of breath (Acute) Low pulse oximetry (Acute) - Secondary Discharge Diagnosis Chronic Problems: Chronic Problems (Last Reviewed 12/02/19 @ 11:04 by Melissa Camarillo) DDD (degenerative disc disease), lumbar (Chronic) Scoliosis of lumbar spine (Chronic) Bronchiectasis (Chronic) Chronic hypoxemic respiratory failure (Chronic) Stage 2 moderate COPD by GOLD classification (Chronic) Hypercholesteremia (Chronic) Carotid stenosis (Chronic) GERD (gastroesophageal reflux disease) (Chronic) Restless legs syndrome (Chronic) COPD (chronic obstructive pulmonary disease) (Chronic) Hypertension (Chronic) Osteoporosis (Chronic) Polycythemia (Chronic) Hospital Course and Treatment Summary of Care Provided: The patient is a 79 year old F [] Patient Problems: Active and Suspected Problems (Last Reviewed 12/02/19 @ 11:04 by Melissa Camarillo) Respiratory failure (Acute) Pulmonary emboli (Acute) Lung mass (Acute) Shortness of breath (Acute) Low pulse oximetry (Acute) - Physical Exam Vitals/I&O's: Vital Signs Temp Pulse Resp BP Pulse Ox 97.8 F 82 20 H 157/86 H 80 01/28/20 11:01 01/28/20 11:10 01/28/20 11:10 01/28/20 11:01 01/28/20 13:03 Oxygen Flow Rate (L/min) [ 4 AMBULATION with Oxygen] Oxygen Flow Rate (L/min) 6 Oxygen Delivery Method Nasal Cannula Weight: 100 lb 1.438 oz Body Mass Index (BMI) 20.7 Intake and Output for Last 24 Hours 01/26/20 01/27/20 01/28/20 23:59 23:59 23:59 Intake Total 1320 / 1320 540 / 900 480 / 480 Output Total 250 / 250 1500 / 2200 1000 / 1000 Balance 1070 / 1070 -960 / -1300 -520 / -520 Microbiology Past 72 Hours 01/25/20 11:11 Blood Culture (Wb) - Anticubital Right Blood Culture - Preliminary No growth in 48 hours. 01/25/20 11:11 Blood Culture (Wb) - Anticubital Left Blood Culture - Preliminary No growth in 48 hours. 01/26/20 07:45 Interface Orders Respiratory Panel (PCR) - Final Laboratory Results 01/28/20 05:56: Sodium 137, Potassium 3.9, Chloride 102, Carbon Dioxide 31.0, Anion Gap 4 L, BUN 25 H, Creatinine 0.80, Estim Creat Clear Calc 41.54, Est GFR (MDRD) Af Amer 89, Est GFR (MDRD) Non-Af 73, BUN/Creatinine Ratio 31.1 H, Glucose 114 H, Calcium 9.9 Current Medications Acetaminophen (Tylenol) 650 mg PO Q6H PRN PRN PRN Reason: Pain Score 1-10/Temp > 100.7 F Albuterol Sulfate (Ventolin Aerosols) 2.5 mg INHALATION Q2H PRN PRN PRN Reason: DYSPNEA Last Admin: 01/27/20 04:33 Dose: 2.5 mg Documented by: Albuterol/Ipratropium (Duoneb) [address] [facility] Last Admin: 01/28/20 11:10 Dose: 3 ml Documented by: Enoxaparin Sodium (Lovenox) 50 mg SC Q12@0600,1800 [facility] Last Admin: 01/28/20 05:19 Dose: 50 mg Documented by: Furosemide (Lasix) 40 mg IV BID@1000,1800 [facility] Lisinopril (Zestril) [address] [facility] Last Admin: 01/28/20 09:07 Dose: 20 mg Documented by: Methylprednisolone (Solu-Medrol) [address] [facility] Last Admin: 01/28/20 13:17 Dose: 40 mg Documented by: Metoprolol Succinate (Toprol Xl (Beta Emmie)) [address] [facility] Last Admin: 01/28/20 09:07 Dose: 100 mg Documented by: Nifedipine (Procardia Xl) [address] [facility] Last Admin: 01/28/20 09:07 Dose: 30 mg Documented by: Nutritional Formula (Lactose Free) (Ensure Enlive) 120 ml PO 4X/DAY [facility] Last Admin: 01/28/20 13:16 Dose: Not Given Documented by: Sodium Chloride () 10 - 40 ml IV UD PRN PRN Reason: SALINE FLUSH Last Admin: 01/28/20 13:17 Dose: 10 ml Documented by: Discharge Activity: Return to Normal Activity Weight Bearing Status: Weight bearing as tolerated Call your doctor if you observe: Shortness of breath, Dizziness, Fainting spells, Swelling in the ankles, Chest pain, Increased palpitations (irregular heartbeat) Home Medications: Medications to take at Discharge Albuterol Inhaler [Ventolin Hfa] 1 - 2 puff INHALATION Q4H PRN PRN 07/27/19 Lisinopril [Zestril] 20 mg PO BID 07/27/19 Metoprolol(XL)Succ [Toprol Xl (Beta Emmie)] 100 mg PO BID 07/27/19 Nifedipine [Procardia Xl] 30 mg PO DAILY 07/27/19 tiotropium 2.5 mcg-olodaterol 2.5 mcg/actuation mist for inhalation 2 puff INHALATION DAILY 08/03/19 Albuterol Aerosols [Ventolin Aerosols] 2.5 mg INHALATION Q4H PRN PRN 01/25/20 Calcium Carbonate/Vitamin D3 [Calcium 600-Vit D3 200 Tablet] 1 tab PO DAILY 01/25/20 Denosumab [Prolia] 60 mg IM .[id number] 01/25/20 Apixaban [Eliquis] 5 mg PO UD #60 tab 01/28/20 Furosemide [Lasix] 40 mg PO DAILY 1 Days #30 tab 01/28/20 predniSONE tablet 40 mg PO DAILY #10 tab 01/28/20 Following Prescriptions Were Given to Patient: Apixaban [Eliquis] 5 mg PO UD #60 tab Transmission Status: Received by [id number] Furosemide [Lasix] 40 mg PO DAILY 1 Days #30 tab Transmission Status: Received by [id number] predniSONE tablet 40 mg PO DAILY #10 tab Transmission Status[facility] [id number] Primary Care Physician: Yasmin Peace MD [Primary Care Provider] - Please follow up with your Primary Care Physician in: 1-2 weeks Please Follow Up With: Lv Powell MD When: 1-2 weeks Patient Instructions: Pulmonary Embolism, Using Oxygen Safely, Using Oxygen at Home, ED Heart Disease Risk Factors Medical Necessity - Tobacco Use Smoking Status: Former smoker Tobacco Use: Cigarettes
--- NOTE | 2020-01-28 13:37 | PCM.PN.HOSP ---
Patient Problems: Active and Suspected Problems (Last Reviewed 12/02/19 @ 11:04 by Melissa Camarillo) Respiratory failure (Acute) Pulmonary emboli (Acute) Lung mass (Acute) Shortness of breath (Acute) Low pulse oximetry (Acute) Subjective: Patient seen and examined. She has no complaints today. She was down to 6 L of oxygen at time of review. Review of systems otherwise negative. She has reamiend hemodynamically stable. Plan was to discharge patient home today, but she was saturating at just 88% on 8L of oxygen. Discharge was therefore cancelled. Vitals/I&O's: Vital Signs Temp Pulse Resp BP Pulse Ox 97.8 F 82 20 H 157/86 H 80 01/28/20 11:01 01/28/20 11:10 01/28/20 11:10 01/28/20 11:01 01/28/20 13:03 Oxygen Flow Rate (L/min) [ 4 AMBULATION with Oxygen] Oxygen Flow Rate (L/min) 6 Oxygen Delivery Method Nasal Cannula Weight: 100 lb 1.438 oz Body Mass Index (BMI) 20.7 Intake and Output for Last 24 Hours 01/26/20 01/27/20 01/28/20 23:59 23:59 23:59 Intake Total 1320 / 1320 540 / 900 480 / 480 Output Total 250 / 250 1500 / 2200 1000 / 1000 Balance 1070 / 1070 -960 / -1300 -520 / -520 General: Alert, Oriented x3, Cooperative HEENT: Atraumatic, PERRLA, EOMI, Normocephalic Oral: Dry Mucosa Neck: Supple, No JVD, Negative Carotid Bruits Lungs: - - diminished breath sounds bibasally, no wheezes or crackles. on 6L of oxygen by nasal canula at time of review Cardiovascular: Regular rate, Regular Rhythm, Normal S1, Normal S2, No murmurs Abdomen: Bowel Sounds Present, Soft, Non Tender, Non-Distended, No Hepato-splenomegaly Extremities: No clubbing, No cyanosis, No edema, Capillary Refill Less than 3 Seconds Skin: No rashes, No breakdown Musculoskeletal: No Tenderness to Palpation of Joints or Extremities Lymphatic: No Cervical, Supraclavicular, or Inguinal Adenopathy Neurological: Cranial nerves II-XII grossly intact, Neuro grossly intact, Motor Exam 5/5 strength throughout Psych/Mental Status: Normal Affect, Appropriate, Alert and oriented to time, place, person, mood and affect Microbiology Past 72 Hours 01/25/20 11:11 Blood Culture (Wb) - Anticubital Right Blood Culture - Preliminary No growth in 48 hours. 01/25/20 11:11 Blood Culture (Wb) - Anticubital Left Blood Culture - Preliminary No growth in 48 hours. 01/26/20 07:45 Interface Orders Respiratory Panel (PCR) - Final Laboratory Results 01/28/20 05:56: Sodium 137, Potassium 3.9, Chloride 102, Carbon Dioxide 31.0, Anion Gap 4 L, BUN 25 H, Creatinine 0.80, Estim Creat Clear Calc 41.54, Est GFR (MDRD) Af Amer 89, Est GFR (MDRD) Non-Af 73, BUN/Creatinine Ratio 31.1 H, Glucose 114 H, Calcium 9.9 Diagnostic Data Chest CTA 01/25/20 11:44 IMPRESSION: There is a large right hilar mass measuring 7.1 x 5.8 x 5.7 cm, encasing the right upper lobe bronchus and the right pulmonary artery resulted in severe stenosis of the right upper lobe bronchus and right upper lobe artery. There are filling defects in the segmental subsegmental branches in the posterior segment the right lung upper lobe suggesting pulmonary emboli. There is a left anterior nodule measures 2 cm may represent a metastatic lesion. Electronically Signed: Kris Ocampo, at 12:54 EDT Tel , Service support , Current Medications Acetaminophen (Tylenol) 650 mg PO Q6H PRN PRN PRN Reason: Pain Score 1-10/Temp > 100.7 F Albuterol Sulfate (Ventolin Aerosols) 2.5 mg INHALATION Q2H PRN PRN PRN Reason: DYSPNEA Last Admin: 01/27/20 04:33 Dose: 2.5 mg Documented by: Albuterol/Ipratropium (Duoneb) 3 ml INHALATION Q4H.RT [facility] Last Admin: 01/28/20 11:10 Dose: 3 ml Documented by: Enoxaparin Sodium (Lovenox) 50 mg SC Q12@0600,1800 [facility] Last Admin: 01/28/20 05:19 Dose: 50 mg Documented by: Furosemide (Lasix) 40 mg IV BID@1000,1800 [facility] Lisinopril (Zestril) 20 mg PO BID [facility] Last Admin: 01/28/20 09:07 Dose: 20 mg Documented by: Methylprednisolone (Solu-Medrol) 40 mg IV Q8 [facility] Last Admin: 01/28/20 13:17 Dose: 40 mg Documented by: Metoprolol Succinate (Toprol Xl (Beta Emmie)) 100 mg PO BID [facility] Last Admin: 01/28/20 09:07 Dose: 100 mg Documented by: Nifedipine (Procardia Xl) 30 mg PO DAILY [facility] Last Admin: 01/28/20 09:07 Dose: 30 mg Documented by: Nutritional Formula (Lactose Free) (Ensure Enlive) 120 ml PO 4X/DAY [facility] Last Admin: 01/28/20 13:16 Dose: Not Given Documented by: Sodium Chloride () 10 - 40 ml IV UD PRN PRN Reason: SALINE FLUSH Last Admin: 01/28/20 13:17 Dose: 10 ml Documented by: STROKE Vital Signs/Narrative: Vital Signs Temp Pulse Resp BP Pulse Ox Pulse Ox Pulse Ox 01/28/20 13:03 82 80 01/28/20 11:10 82 20 H 01/28/20 11:01 97.8 F 71 18 157/86 H 94 Medical Necessity - Tobacco Use Smoking Status: Former smoker Tobacco Use: Cigarettes Assessment/Plan All Active Problems (Last Reviewed 12/02/19 @ 11:04 by Melissa Camarillo) Respiratory failure (Acute) Pulmonary emboli (Acute) Lung mass (Acute) Shortness of breath (Acute) Low pulse oximetry (Acute) Segmental and somatic dysfunction of lumbar region (Acute) Segmental and somatic dysfunction of pelvic region (Acute) Segmental and somatic dysfunction of thoracic region (Acute) Elevated high sensitivity C-reactive protein (Acute) Congenital cystic disease of kidney (Acute) Allergic rhinitis (Acute) Gout tophi (Acute) SOB (shortness of breath) on exertion (Acute) Bladder prolapse (Acute) Vitamin D deficiency (Acute) No history of previous surgery (Resolved) # Acute on chronic hypoxic respiratory failure Due to right-sided PE and lung mass which is constricting the right main bronchus and right pulmonary artery. Also suspected that she may have an acute on chronic exacerbation of COPD. on 6L of oxygen this morning Titrate oxygen to maintain saturation above 90%. On breathing treatment with bronchodilators. 2D echo done showed EF of 70%, with normal LV size and systolic function, with mildly dilated RV adn RVSP of 86mmhg Pulmonology on board. Also on IV Solu-Medrol. patient was saturating at 88% on 8L of oxygen, so patient will continue diuresis today. #Right-sided PE: On subcu Lovenox. Likely due to right lung mass which is suspicious for malignancy in light of her surgery of chronic smoking. Pulmonology on board. 2D echo as above. to be discharged home on PO eliquis # Pulmonary hypertension As under echo above. Patient being started on gentle diuresis. #Right-sided hilar mass: CTA of the chest on admission showed a right sided large hilar mass measuring about 7.1 x 5.8 x 5.7 cm encasing the right upper lobe bronchus and the right pulmonary artery resulting in severe stenosis of the right upper lobe bronchus and right upper lobe artery with an anterior left nodule of about 2 cm which may represent a metastatic lesion. She does have a history of chronic smoking though she quit several years ago. Per pulmonology, to have bronchoscopy and biopsy and its to be best completed under general anesthesia in the OR given the patient's tenuous respiratory status. #Hypertension: On metoprolol and lisinopril as well as nifedipine. DVT prophylaxis: Already therapeutically anticoagulated on account of PE. Inpatient E&M: 83698 [facility] H[facility] L2
--- NOTE | 2020-01-28 14:44 | CASEMGMT ---
Call back to [facility] to verify pt's home oxygen order and per Derek, pt's order is for 2liters at bedtime and she states they never provided pt with a portable concentrator either. This RN CM to pt's room and pt states that Dr. Peace gave pt an order for home oxygen 3liters and for the portable concentrator and pt states she set it up through [employer]. Pt states she is aware that this can't be set up through [employer] at this time and would like to send to [facility] for increased home oxygen need. Pt states her home concentrator only goes up to 5liters and her portable concentrator only goes to 3liters. Arminda RN aware to test pt on room air at rest and then 4liters at rest and with ambulation at this time. On room air at rest, pt immediately dropped to 80% and then was 85% on 4liters and requires 6liters at rest at this time. With ambulation, pt dropped to 82% on 4liters and was only 88% on 8liters. Dr. Vasquez and Dr. White updated and pt discharge cancelled at this time. Pt/daughter updated at this time, voice understanding. Pt aware she will be tested again tomorrow. Pt also to be sent home on Eliquis at discharge and daughter already provided with Eliquis 30 free trial card at this time. Pt declines need for any therapy at this time and has been independent in the room. Call to [facility] and per tech, pt's co-pay for Eliquis that was already e-scribed is $123.32 at this time. Pt/daughter voice no further questions/concerns/needs at this time. Kody ARELLANO CM
[2020-01-29] VITALS (12 sets, daily range): BP systolic 124–157; BP diastolic 70–90; PULSE 67–81; RESP 14–20; TEMP 36.3–36.8; O2SAT 88–90
[2020-01-29] MEDS: Enoxaparin 60 MG/0.6 ML Syringe 50 MG SC (05:13)
[2020-01-29] MEDS: 0.9% Saline Lock 10 ML Syringe IV ×2 (05:13→09:16)
[2020-01-29] MEDS: Ipratropium/Albuterol Sulfate 3 ML AMPUL.NEB INHALATION ×2 (06:51→11:37)
--- NOTE | 2020-01-29 08:15 | PCM.PN.PUL ---
Patient Problems: Active and Suspected Problems (Last Reviewed 12/02/19 @ 11:04 by Melissa Camarillo) Respiratory failure (Acute) Pulmonary emboli (Acute) Lung mass (Acute) Shortness of breath (Acute) Low pulse oximetry (Acute) Subjective: The patient was seen and examined at the bedside this morning. Events from the last 24 hours have been reviewed. The patient is currently afebrile, hemodynamically stable and maintaining appropriate oxygen saturations on 5 L/min via nasal cannula. The patient was kept for an additional day inpatient after she required 8 L/min of supplemental oxygen with exertion to maintain appropriate saturations during her walking test yesterday. Objective: The patient's most recent lab work, culture data and imaging studies have all been personally reviewed. Surface echocardiogram revealed normal LV size and function with an ejection fraction of 70%. Diastolic function was indeterminate. The RV was mildly dilated with normal systolic function. Right ventricular systolic pressure was estimated to be 86 mmHg. Respiratory viral panel was negative. Blood cultures have shown no growth to date. - Physical Exam Vitals/I&O's: Vital Signs Temp Pulse Resp BP Pulse Ox 97.3 F L 67 18 134/87 H 90 01/29/20 07:05 01/29/20 07:05 01/29/20 07:05 01/29/20 07:05 01/29/20 07:05 Oxygen Flow Rate (L/min) [ 4 AMBULATION with Oxygen] Oxygen Flow Rate (L/min) 5 Oxygen Delivery Method Nasal Cannula Weight: 100 lb 12.02 oz Body Mass Index (BMI) 20.7 Intake and Output for Last 24 Hours 01/27/20 01/28/20 01/29/20 23:59 23:59 23:59 Intake Total 540 / 900 1120 / 1120 240 / 240 Output Total 1500 / 2200 2100 / 2100 550 / 550 Balance -960 / -1300 -980 / -980 -310 / -310 General: Alert, No apparent distress HEENT: Atraumatic, Normocephalic Oral: No Gingival or Mucosal Lesions/ Ulcerations Neck: Supple, No Nodes, Trachea Midline Lungs: No rhonchi, No wheeze, No rales, Diminished Cardiovascular: Regular rate, Regular Rhythm Abdomen: Bowel Sounds Present, Soft, Non Tender Extremities: No clubbing, No cyanosis, No edema Skin: No breakdown Musculoskeletal: No Tenderness to Palpation of Joints or Extremities Lymphatic: No Cervical, Supraclavicular, or Inguinal Adenopathy Neurological: Neuro grossly intact Psych/Mental Status: Normal Affect, Appropriate Labs (Last 48 Hours) 01/28/20 05:56 Sodium 137 Potassium 3.9 Chloride 102 Carbon Dioxide 31.0 Anion Gap 4 L BUN 25 H Creatinine 0.80 Estim Creat Clear Calc 41.54 Est GFR (MDRD) Af Amer 89 Est GFR (MDRD) Non-Af 73 BUN/Creatinine Ratio 31.1 H Glucose 114 H Calcium 9.9 Microbiology 01/25/20 11:11 Blood Culture (Wb) - Anticubital Right Blood Culture - Preliminary No growth in 48 hours. 01/25/20 11:11 Blood Culture (Wb) - Anticubital Left Blood Culture - Preliminary No growth in 48 hours. Clinical Impression(s) from Imaging Studies Chest CTA 01/25/20 11:44 IMPRESSION: There is a large right hilar mass measuring 7.1 x 5.8 x 5.7 cm, encasing the right upper lobe bronchus and the right pulmonary artery resulted in severe stenosis of the right upper lobe bronchus and right upper lobe artery. There are filling defects in the segmental subsegmental branches in the posterior segment the right lung upper lobe suggesting pulmonary emboli. There is a left anterior nodule measures 2 cm may represent a metastatic lesion. Electronically Signed: Kris Ocampo, at 12:54 EDT Tel , Service support , Current Medications Acetaminophen (Tylenol) 650 mg PO Q6H PRN PRN PRN Reason: Pain Score 1-10/Temp > 100.7 F Albuterol Sulfate (Ventolin Aerosols) 2.5 mg INHALATION Q2H PRN PRN PRN Reason: DYSPNEA Last Admin: 01/27/20 04:33 Dose: 2.5 mg Documented by: Albuterol/Ipratropium (Duoneb) 3 ml INHALATION Q4H.RT [facility] Last Admin: 01/29/20 06:51 Dose: 3 ml Documented by: Enoxaparin Sodium (Lovenox) 50 mg SC Q12@0600,1800 [facility] Last Admin: 01/29/20 05:13 Dose: 50 mg Documented by: Furosemide (Lasix) 40 mg IV BID@1000,1800 [facility] Last Admin: 01/28/20 17:20 Dose: 40 mg Documented by: Lisinopril (Zestril) 20 mg PO BID [facility] Last Admin: 01/28/20 21:08 Dose: 20 mg Documented by: Methylprednisolone (Solu-Medrol) 40 mg IV Q8 [facility] Last Admin: 01/29/20 05:13 Dose: 40 mg Documented by: Metoprolol Succinate (Toprol Xl (Beta Emmie)) 100 mg PO BID [facility] Last Admin: 01/28/20 21:08 Dose: 100 mg Documented by: Nifedipine (Procardia Xl) 30 mg PO DAILY [facility] Last Admin: 01/28/20 09:07 Dose: 30 mg Documented by: Nutritional Formula (Lactose Free) (Ensure Enlive) 120 ml PO 4X/DAY [facility] Last Admin: 01/28/20 21:07 Dose: Not Given Documented by: Sodium Chloride () 10 - 40 ml IV UD PRN PRN Reason: SALINE FLUSH Last Admin: 01/29/20 05:13 Dose: 10 ml Documented by: Medical Necessity - Tobacco Use Smoking Status: Former smoker Tobacco Use: Cigarettes Assessment/Plan All Active Problems (Last Reviewed 12/02/19 @ 11:04 by Melissa Camarillo) Respiratory failure (Acute) Pulmonary emboli (Acute) Lung mass (Acute) Shortness of breath (Acute) Low pulse oximetry (Acute) Segmental and somatic dysfunction of lumbar region (Acute) Segmental and somatic dysfunction of pelvic region (Acute) Segmental and somatic dysfunction of thoracic region (Acute) Elevated high sensitivity C-reactive protein (Acute) Congenital cystic disease of kidney (Acute) Allergic rhinitis (Acute) Gout tophi (Acute) SOB (shortness of breath) on exertion (Acute) Bladder prolapse (Acute) Vitamin D deficiency (Acute) No history of previous surgery (Resolved) RECOMMENDATIONS: 1. Wean supplemental oxygen to maintain saturations at or above 88%. 2. Continue scheduled bronchodilator therapy. 3. Okay to transition to prednisone 40 mg daily with plans for a taper at discharge. 4. Continue gentle diuresis as tolerated. 5. Okay to transition the patient from Lovenox to either Eliquis or Xarelto for discharge planning. 6. Encourage incentive spirometer use and mobilize patient as tolerated. 7. Timing for bronchoscopy will be discussed with Dr. Powell and likely scheduled for next week. 8. Plan for discharge on supplemental oxygen at 6 L/min at rest and 8 L/min with exertion. IMPRESSIONS: 1. Acute on chronic hypoxemic respiratory failure The patient previously was noted to have a 3 L/min baseline oxygen requirement. [place], the patient has noted worsening in her breathing quality. She has been treated with antibiotics and steroids by her PCP with little overall improvement in her respiratory status. Subsequent work-up in the emergency department did reveal evidence of pulmonary emboli along with a large right hilar lung mass exerting a mass-effect on the right-sided tracheobronchial tree and pulmonary vasculature. This is highly suspicious for underlying malignancy. Although reluctant, the patient seems agreeable to proceeding with bronchoscopy and biopsy. For safety reasons, this would likely be best completed under general anesthesia in the OR, given the patient's tenuous respiratory status. This can likely be arranged next week on an outpatient basis. In the interim, the patient supplemental oxygen will be weaned and she will be continued on systemic anticoagulation. Scheduled bronchodilator therapy will be continued along steroids. Given that the patient does have pulmonary hypertension on echocardiogram, gentle diuresis will be continued as tolerated by hemodynamics and renal function. 2. Right hilar lung mass Management as noted above with plans for bronchoscopy and biopsy, likely to be scheduled next week on outpatient basis under general anesthesia. 3. 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 Continue home medications as indicated. This note was generated with [employer] dictation software. It may contain incorrect words, spelling, and punctuation that were not noted in checking the note before signing. Inpatient E&M: 55826 Subs Hosp L2
--- NOTE | 2020-01-29 08:26 | NURSING ---
Pt dropped to 80% on RA at rest, 84% on 4LN at rest,82% 4LNC with ambulation. Pt requiring 8LNC to maintain 88% with ambulation.
[2020-01-29] MEDS: Furosemide 40 MG/4 ML Vial IV (09:16)
[2020-01-29] MEDS: Metoprolol(XL)Succ 100 MG Tablet PO (09:16)
[2020-01-29] MEDS: NIFEdipine 30 MG Tablet PO (09:16)
[2020-01-29] MEDS: Lisinopril 20 MG Tablet PO (09:16)
--- NOTE | 2020-01-29 10:38 | DCINST_ITS ---
- Discharge Diagnoses Current Active Problems: Current Active and Chronic Problems (Last Reviewed 12/02/19 @ 11:04 by Melissa Camarillo) Respiratory failure (Acute) Pulmonary emboli (Acute) Lung mass (Acute) Shortness of breath (Acute) Low pulse oximetry (Acute) You will use the following diet at home:: Cardiac Your food should be the consistency of: Regular Your liquids should be the consistency of: Regular/Thin Discharge Activity: Return to Normal Activity Weight Bearing Status: Weight bearing as tolerated Call your doctor if you observe: Shortness of breath, Dizziness, Fainting spells, Swelling in the ankles, Chest pain, Increased palpitations (irregular heartbeat) Instructions: Pulmonary Embolism, Using Oxygen Safely, Using Oxygen at Home, ED Heart Disease Risk Factors Additional Instructions: to use oxygen 8L with ambulation and 6L with rest for shortness of breath. Dr Dumas's office to call patient about date for bronchoscopy and biopsy. To stop eliquis ~ 48 hours prior to biopsy Allergies/Adverse Reactions: Allergies codeine Adverse Reaction (Severe, Verified 11/18/19 10:28) Vomiting MOST PAIN MEDS Adverse Reaction (Uncoded 01/25/20 10:40) Vomiting Medications to take at Discharge Albuterol Inhaler [Ventolin Hfa] 1 - 2 puff INHALATION Q4H PRN PRN 07/27/19 Lisinopril [Zestril] 20 mg PO BID 07/27/19 Metoprolol(XL)Succ [Toprol Xl (Beta Emmie)] 100 mg PO BID 07/27/19 Nifedipine [Procardia Xl] 30 mg PO DAILY 07/27/19 tiotropium 2.5 mcg-olodaterol 2.5 mcg/actuation mist for inhalation 2 puff INHALATION DAILY 08/03/19 Albuterol Aerosols [Ventolin Aerosols] 2.5 mg INHALATION Q4H PRN PRN 01/25/20 Calcium Carbonate/Vitamin D3 [Calcium 600-Vit D3 200 Tablet] 1 tab PO DAILY 01/25/20 Denosumab [Prolia] 60 mg IM .[id number] 01/25/20 Apixaban [Eliquis] 5 mg PO UD #60 tab 01/28/20 Furosemide [Lasix] 40 mg PO DAILY 1 Days #30 tab 01/28/20 predniSONE tablet 40 mg PO DAILY #10 tab 01/28/20 Potassium Chloride [K-Dur] 20 meq PO DAILY #20 tab 01/29/20 The following prescriptions were given: Apixaban [Eliquis] 5 mg PO UD #60 tab Transmission Status: Received by [facility] Potassium Chloride [K-Dur] 20 meq PO DAILY #20 tab Transmission Status: Pending to [facility] Furosemide [Lasix] 40 mg PO DAILY 1 Days #30 tab Transmission Status: Received by [facility] predniSONE tablet 40 mg PO DAILY #10 tab Transmission Status: Received by [facility] Primary Care Physician: Yasmin Peace MD [Primary Care Provider] - Please follow up with your Primary Care Physician in: 1-2 weeks Test Results: Test results from this visit will be discussed in further detail at your follow- up appointment, if applicable. Please Follow Up With: Lv Powell MD When: 1-2 weeks Proposed Discharge Date: 01/28/20
--- NOTE | 2020-01-29 10:42 | PCM.DC.SUM ---
Discharge Date and Diagnosis Date of Admission: 01/25/20 Date of Discharge: 01/29/20 - Primary Discharge Diagnosis Acute Problems: Active Problems (Last Reviewed 12/02/19 @ 11:04 by Melissa Camarillo) Respiratory failure (Acute) Pulmonary emboli (Acute) Lung mass (Acute) Shortness of breath (Acute) Low pulse oximetry (Acute) - Secondary Discharge Diagnosis Chronic Problems: Chronic Problems (Last Reviewed 12/02/19 @ 11:04 by Melissa Camarillo) DDD (degenerative disc disease), lumbar (Chronic) Scoliosis of lumbar spine (Chronic) Bronchiectasis (Chronic) Chronic hypoxemic respiratory failure (Chronic) Stage 2 moderate COPD by GOLD classification (Chronic) Hypercholesteremia (Chronic) Carotid stenosis (Chronic) GERD (gastroesophageal reflux disease) (Chronic) Restless legs syndrome (Chronic) COPD (chronic obstructive pulmonary disease) (Chronic) Hypertension (Chronic) Osteoporosis (Chronic) Polycythemia (Chronic) Hospital Course and Treatment Imaging Results: Diagnostic Data Chest CTA 01/25/20 11:44 IMPRESSION: There is a large right hilar mass measuring 7.1 x 5.8 x 5.7 cm, encasing the right upper lobe bronchus and the right pulmonary artery resulted in severe stenosis of the right upper lobe bronchus and right upper lobe artery. There are filling defects in the segmental subsegmental branches in the posterior segment the right lung upper lobe suggesting pulmonary emboli. There is a left anterior nodule measures 2 cm may represent a metastatic lesion. Electronically Signed: Kris Ocampo, at 12:54 EDT Tel , Service support , pulmonology- Dr Vasquez Operations: None Procedures: 2-D Echocardiogram Summary of Care Provided: The patient is a 79 year old F with a past medical history as outlined. She has a history of COPD also 2 to 3 L of oxygen at home. Patient was admitted through the ED on 01/25/2020 after she was sent in by her PCP due to hypoxia is detected in the PCPs office by pulse oximetry. Patient has been complaining of increased shortness of breath for 2 months prior to admission. She went see her PCP and her oxygen saturation level was found to be low so she was referred to the ED. On arrival in the ED, her pulse ox was 80% on 6 L of oxygen via nasal cannula. D-dimer was elevated at 0.83. Cover test done was negative. CTA done of the chest showed a right hilar mass which is compressing on the right pulmonary artery in the right upper lobe bronchus and also PE in the right upper lobe, with an anterior nodule in the left lung which could represent a metastatic lesion.. She was admitted to the ICU initially and managed for acute on chronic hypoxic respiratory failure as well as PE and right lung mass. Pulmonology was consulted and she was started on Lovenox. Pulmonology reviewed patient and decision was for patient to have bronchoscopy and biopsy but this would be best completed under general anesthesia in the OR given the patient's tenuous respiratory status. Patient required increasing amounts of oxygen was requiring up to 9 L of oxygen at the time. She was weaned down to a alexandrea of 67 L of oxygen by nasal cannula. With walking pulse ox, patient required up to 8 L of oxygen to maintain saturation above 88%. Patient made otherwise stable and was discharged home on 01/29/2020 on 6 L of oxygen at rest to increase to 8 L of oxygen with ambulation for associated shortness of breath. She was switched to Eliquis 10 mg twice daily till 02/05/2020 and then continue with 5 mg twice daily as treatment for PE. She is to follow-up with pulmonology for decision to be made about when to have a bronchoscopy and biopsy. She was counseled that she will need to stop her Eliquis 48 hours prior to having the bronchoscopy and biopsy. Patient seen and examined prior to discharge. She had no complaints and felt well. Review of symptoms otherwise negative. Labs and vitals reviewed. Home medication reviewed and reconciled. O/E: Vital Signs Temp Pulse Resp BP Pulse Ox 98.2 F 80 18 130/70 H 90 01/29/20 13:01 01/29/20 13:01 01/29/20 13:01 01/29/20 13:01 01/29/20 13:01 [] General: Alert, Oriented x3, Cooperative HEENT: Atraumatic, PERRLA, EOMI, Normocephalic Oral: Dry Mucosa Neck: Supple, No JVD, Negative Carotid Bruits Lungs: - - diminished breath sounds bibasally, no wheezes or crackles. on 6L of oxygen by nasal canula at time of review Cardiovascular: Regular rate, Regular Rhythm, Normal S1, Normal S2, No murmurs Abdomen: Bowel Sounds Present, Soft, Non Tender, Non-Distended, No Hepato-splenomegaly Extremities: No clubbing, No cyanosis, No edema, Capillary Refill Less than 3 Seconds Skin: No rashes, No breakdown Musculoskeletal: No Tenderness to Palpation of Joints or Extremities Lymphatic: No Cervical, Supraclavicular, or Inguinal Adenopathy Neurological: Cranial nerves II-XII grossly intact, Neuro grossly intact, Motor Exam 5/5 strength throughout Psych/Mental Status: Normal Affect, Appropriate, Alert and oriented to time, place, person, mood and affect Plan is for discharge home as above. - Physical Exam Vitals/I&O's: Vital Signs Temp Pulse Resp BP Pulse Ox 98.2 F 80 18 140/72 H 88 01/29/20 09:15 01/29/20 09:16 01/29/20 09:15 01/29/20 09:16 01/29/20 09:15 Oxygen Flow Rate (L/min) [ 4 AMBULATION with Oxygen] Oxygen Flow Rate (L/min) 6 Oxygen Delivery Method Nasal Cannula Weight: 100 lb 12.02 oz Body Mass Index (BMI) 20.7 Intake and Output for Last 24 Hours 01/27/20 01/28/20 01/29/20 23:59 23:59 23:59 Intake Total 540 / 900 1120 / 1120 240 / 240 Output Total 1500 / 2200 2100 / 2100 550 / 550 Balance -960 / -1300 -980 / -980 -310 / -310 Microbiology Past 72 Hours 01/25/20 11:11 Blood Culture (Wb) - Anticubital Right Blood Culture - Preliminary No growth in 48 hours. 01/25/20 11:11 Blood Culture (Wb) - Anticubital Left Blood Culture - Preliminary No growth in 48 hours. 01/26/20 07:45 Interface Orders Respiratory Panel (PCR) - Final Current Medications Acetaminophen (Tylenol) 650 mg PO Q6H PRN PRN PRN Reason: Pain Score 1-10/Temp > 100.7 F Albuterol Sulfate (Ventolin Aerosols) 2.5 mg INHALATION Q2H PRN PRN PRN Reason: DYSPNEA Last Admin: 01/27/20 04:33 Dose: 2.5 mg Documented by: Albuterol/Ipratropium (Duoneb) 3 ml INHALATION Q4H.RT [facility] Last Admin: 01/29/20 06:51 Dose: 3 ml Documented by: Enoxaparin Sodium (Lovenox) 50 mg SC Q12@0600,1800 [facility] Last Admin: 01/29/20 05:13 Dose: 50 mg Documented by: Furosemide (Lasix) 40 mg IV BID@1000,1800 [facility] Last Admin: 01/29/20 09:16 Dose: 40 mg Documented by: Lisinopril (Zestril) 20 mg PO BID [facility] Last Admin: 01/29/20 09:16 Dose: 20 mg Documented by: Methylprednisolone (Solu-Medrol) 40 mg IV Q8 [facility] Last Admin: 01/29/20 05:13 Dose: 40 mg Documented by: Metoprolol Succinate (Toprol Xl (Beta Emmie)) 100 mg PO BID [facility] Last Admin: 01/29/20 09:16 Dose: 100 mg Documented by: Nifedipine (Procardia Xl) 30 mg PO DAILY [facility] Last Admin: 01/29/20 09:16 Dose: 30 mg Documented by: Nutritional Formula (Lactose Free) (Ensure Enlive) 120 ml PO 4X/DAY [facility] Last Admin: 01/29/20 09:17 Dose: Not Given Documented by: Sodium Chloride () 10 - 40 ml IV UD PRN PRN Reason: SALINE FLUSH Last Admin: 01/29/20 09:16 Dose: 10 ml Documented by: Discharge Diet: Low fat/ Low Cholesterol Discharge Activity: Return to Normal Activity Weight Bearing Status: Weight bearing as tolerated Call your doctor if you observe: Shortness of breath, Dizziness, Fainting spells, Swelling in the ankles, Chest pain, Increased palpitations (irregular heartbeat) Home Medications: Medications to take at Discharge Albuterol Inhaler [Ventolin Hfa] 1 - 2 puff INHALATION Q4H PRN PRN 07/27/19 Lisinopril [Zestril] 20 mg PO BID 07/27/19 Metoprolol(XL)Succ [Toprol Xl (Beta Emmie)] 100 mg PO BID 07/27/19 Nifedipine [Procardia Xl] 30 mg PO DAILY 07/27/19 tiotropium 2.5 mcg-olodaterol 2.5 mcg/actuation mist for inhalation 2 puff INHALATION DAILY 08/03/19 Albuterol Aerosols [Ventolin Aerosols] 2.5 mg INHALATION Q4H PRN PRN 01/25/20 Calcium Carbonate/Vitamin D3 [Calcium 600-Vit D3 200 Tablet] 1 tab PO DAILY 01/25/20 Denosumab [Prolia] 60 mg IM .[id number] 01/25/20 Apixaban [Eliquis] 5 mg PO UD #60 tab 01/28/20 predniSONE tablet 40 mg PO DAILY #10 tab 01/28/20 Furosemide 40 mg PO DAILY 30 Days #30 tab 01/29/20 Potassium Chloride [K-Dur] 20 meq PO DAILY #20 tab 01/29/20 Following Prescriptions Were Given to Patient: Apixaban [Eliquis] 5 mg PO UD #60 tab Transmission Status: Received by [facility] Furosemide 40 mg PO DAILY 30 Days #30 tab Transmission Status: Received by [facility] Potassium Chloride [K-Dur] 20 meq PO DAILY #20 tab Transmission Status: Received by [facility] predniSONE tablet 40 mg PO DAILY #10 tab Transmission Status: Received by [facility] Primary Care Physician: Yasmin Peace MD [Primary Care Provider] - Please follow up with your Primary Care Physician in: 1-2 weeks Please Follow Up With: Lv Powell MD When: 1-2 weeks Patient Instructions: Pulmonary Embolism, Using Oxygen Safely, Using Oxygen at Home, ED Heart Disease Risk Factors Disposition: Home Minutes spent on discharge:: 45 Patient Condition:: Stable Medical Necessity - Tobacco Use Smoking Status: Former smoker Tobacco Use: Cigarettes Meaningful Use Info Meaningful Use Diagnoses (Choose all that apply): VTE - VTE Anticoag overlap given w/in hospital stay or rx'd at ak?: Yes Pt receive overlap for 5 days?: No Reason overlap not ordered, prescribed, or given for 5 days: Treatment Not Indicated Inpatient E&M: [id number] [facility]
--- NOTE | 2020-01-29 11:59 | PHA.DC.MC ---
Pharmacy Service has performed discharge medication reconciliation and counseling for this patient. The patient was counseled on the following discharge medications and changes in medications for homegoing were reviewed. 1. PREDNISONE 2. ELIQUIS 3. LASIX 4. POTASSIUM The Reason for Use, instructions for use, and potential side effects were reviewed for all new medications. The patient's questions regarding all of their medications were answered. The patient was able to verbally demonstrate an understanding of their discharge medications. Home Medications Albuterol Inhaler [Ventolin Hfa] 1 - 2 puff INHALATION Q4H PRN PRN 07/27/19 Lisinopril [Zestril] 20 mg PO BID 07/27/19 Metoprolol(XL)Succ [Toprol Xl (Beta Emmie)] 100 mg PO BID 07/27/19 Nifedipine [Procardia Xl] 30 mg PO DAILY 07/27/19 tiotropium 2.5 mcg-olodaterol 2.5 mcg/actuation mist for inhalation 2 puff INHALATION DAILY 08/03/19 Albuterol Aerosols [Ventolin Aerosols] 2.5 mg INHALATION Q4H PRN PRN 01/25/20 Calcium Carbonate/Vitamin D3 [Calcium 600-Vit D3 200 Tablet] 1 tab PO DAILY 01/25/20 Denosumab [Prolia] 60 mg IM .[id number] 01/25/20 Apixaban [Eliquis] 5 mg PO UD #60 tab 01/28/20 predniSONE tablet 40 mg PO DAILY #10 tab 01/28/20 Furosemide 40 mg PO DAILY 30 Days #30 tab 01/29/20 Potassium Chloride [K-Dur] 20 meq PO DAILY #20 tab 01/29/20 The patient's discharge medication list was reviewed for discrepancies and discrepancies were resolved.
--- NOTE | 2020-01-29 12:16 | NURSING ---
Issue: Patient currently on home oxygen but has increased O2 demands upon hospital DC, current order needs changed with [facility]. Patient already has a [employer]ogen portable concentrator but requiring more LPM than [employer]ogen can accommodate. 0958-Called [facility] [phone][facility] and states that the oxygen concentrator can accommodate 10lpm. Aware requires order change and states to fax to [phone] 1031- Received call from [facility] and states need to correct order and re-fax, also inquiring if patient will need portable oxygen delivered to patient bedside 1213- Called [facility] and [facility] and states will be here at hospital to deliver portable oxygen within the hour. Patient and primary nurse updated. JEANNE Curtis
--- NOTE | 2020-02-01 10:53 | CASEMGMT ---
EILEEN MUSTAFA Discharge Follow-up Phone Call: DINO: Duane Strata: 3 Call Date: 02/01/2020 Discharge Date: 01/29/2020 Time of Call: 1040 Admitting Diagnosis: PE, respiratory failure, lung mass Discharge follow-up call placed to pt. Pt states her breathing is about the same since discharge and that she has otherwise been doing well since discharge. Pt states she did obtain her medications and has been taking the as prescribed. Pt denied any questions related to medications. Pt states she is aware of the scheduled follow-up appointment with Dr. Peace tomorrow. Pt questioned follow-up with Dr. Powell for next week as she felt she was to have a bronchoscopy this week. Pt provided this EILEEN MUSTAFA permission to call Dr. Vasquez/Andre's office to clarify follow-up expectation. Voicemail for the office received and message left. Will follow-up with the office/pt. Pt states that Korina has been out to the house (was there this morning) and she has the O2 tanks that she needs. Pt denied any other questions or concerns. Ady Molina RN CM
--- NOTE | 2020-02-01 14:57 | CASEMGMT ---
EILEEN MUSTAFA Follow-up: This RN CM contacted Dr. Vasquez/Andre's office and per Carmenza they are setting up pt's bronch with Dr. Powell and they have contacted the patient. This RN CM phoned the patient to ensure she did not have any further questions. Pt states she does not have a date for the bronchoscopy and is awaiting a call back from the pulmonology office to tell her when to stop her Eliquis and when the procedure will be. Pt would like this RN CM to continue to follow. Will call patient tomorrow for an update the status of her bronch. Ady Molina RN CM.
--- NOTE | 2020-02-02 14:36 | CASEMGMT ---
EILEEN MUSTAFA follow-up: Call placed to patient. Pt states she is scheduled for her bronchoscopy on of this week and that she is off of her Eliquis as of yesterday. Pt denies further concerns. Ady Molina RN CM
== END 2020-01-29 13:20 | disposition home or self-care (01) | DRG 189 ==
LOC: ED 14:10 → ICU 14:56 → PCU 01-26 11:31
PROVIDERS: Internal Medicine Critical Care Medicine; Admitting Provider Internal Medicine; Emergency Provider Emergency Medicine; PCP Internal Medicine; Visit Provider Student in an Organized Health Care Education/Training Program
DX: J96.21 Acute and chronic respiratory failure with hypoxia (principal); I26.99 Other pulmonary embolism without acute cor pulmonale; Q25.6 Stenosis of pulmonary artery; J44.1 Chronic obstructive pulmonary disease with (acute) exacerbation; Q61.9 Cystic kidney disease, unspecified; E44.0 Moderate protein-calorie malnutrition; R91.1 Solitary pulmonary nodule; I27.20 Pulmonary hypertension, unspecified; D75.1 Secondary polycythemia; I10 Essential (primary) hypertension; E78.00 Pure hypercholesterolemia, unspecified; M81.0 Age-related osteoporosis without current pathological fracture; K21.9 Gastro-esophageal reflux disease without esophagitis; Z66 Do not resuscitate; Z23 Encounter for immunization; Z68.20 Body mass index [BMI] 20.0-20.9, adult; Z91.19 Patient's noncompliance with other medical treatment and regimen; Z79.899 Other long term (current) drug therapy; Z87.891 Personal history of nicotine dependence; Z99.81 Dependence on supplemental oxygen
CPT/HCPCS: 36415; 71275; 80048; 80053; 80076; 83605; 84484; 85025; 85379; 85610; 85730; 87040; 87633; 87635; 93005; 93306; 94640; 97802; 99251; 99285; G0008; Q9957; Q9967; 90686; A4216; G0463; J1940; U0003

== ENCOUNTER 2020-02-04 11:51 | Day surgery (SDC) | payer MEDICARE, SELFPAY ==
[2020-01-26 10:31] VITALS: BMI 20.7
[2020-02-03 14:52] VITALS: BMI 19.9
--- NOTE | 2020-02-04 | FLU_PTH ---
PATIENT: KAREN MERRILL LOC: EN U#:[id number] AGE/SX: 79/F ROOM: RE02/04/[address]: Dr. Lv Powell MD : 1940 BED: DIS: 02/04/2020 SPEC #: [id number] RECD: 02/04/20 14:15 STATUS: SERENA JENNIFER #: [id number] ALEJO: 02/04/20 00:[address]: Lv Powell DEPT: CYTOLOGY RECD BY: Janna Gonzalez ENTERED: 02/05/20 12:42 SP TYPE: Fluid OTHR DR: Dr. Yasmin Peace MD Tissues: A - Bronchus of right upper lobe B - Bronchus of right upper lobe C - Bronchus of right upper lobe Procedures: Special Stain Group II Surgery Specimen Level IV Cytospin Fluid HEADER OPERATION: Bronchoscopy with biopsies PRE-OP DIAGNOSIS: Lung mass TISSUE SUBMITTED: A - Washings, B - Brushings, C - Bronchus intermedius brushings, slides x3 DIAGNOSIS CYTOLOGY A. Washings, fluid (cytospin and cell block): Negative for malignant cells. Focal bacterial colonization. B. [place] (cell block): Negative for malignant cells. C. Bronchus intermedius brushings (smears): Negative for malignant cells. See comment. SJ:chayito 02/08/20 COMMENT Please correlate with corresponding surgical specimen ([id number]) bronchus intermedius, endobronchial biopsy with diagnosis of non-small cell carcinoma, favor squamous cell carcinoma. CYTOLOGY STUDY Slides are reviewed. CYTOLOGY GROSS A - Received is 15 ml of dark red turbid fluid labeled with the patient's name and and designated per the requisition as washings. Submitted for cytology preparation including cell block. B - Received is <1 ml of red cloudy fluid labeled with the patient's name and and designated per the requisition as tissue dislodged from the brush submitted for cell block preparation. C - Received are three smears labeled with the patient's name and designated per the requisition as bronchus intermedius. Submitted for staining. / chayito 02/05/20 TC:5 CPT: 03334, 99369, 51840 x2
[2020-02-04 12:15] VITALS: BP 125/82; PULSE 82; RESP 16; TEMP 36.8; O2SAT 96; BMI 19.6
[2020-02-04] MEDS: Lactated Ringers 1,000 ML 100 ML IV (12:32)
[2020-02-04] MEDS: Lidocaine 2% Jelly 1 APPLIC Tube (13:30)
[2020-02-04] MEDS: Epinephrine (1 mg/ml) 1 MG/ML VIAL (13:30)
[2020-02-04] MEDS: 0.9% Normal Saline (Pres. free 10 ML Vial (13:30)
[2020-02-04 13:49] VITALS: BP 119/82; BP 125/82; PULSE 73; RESP 16; TEMP 36.4; O2SAT 94
[2020-02-04 13:55] VITALS: BP 120/95; BP 125/82; PULSE 75; RESP 16; O2SAT 95
--- NOTE | 2020-02-04 13:57 | OP.BRONCH_ITS ---
Patient Name: Tracy Dixon Procedure Date: 02/04/2020 12:47 PM Date of : 1940 Age: 79 Procedure: Bronchoscopy Indications: Hilar/mediastinal abnormality of the right side, Right middle lobe lung mass suspicious for cancer Providers: Lv Powell MD Referring MD: Lv Powell MD Medicines: Monitored Anesthesia Care Complications: Hypoxia Procedure: Pre-Anesthesia Assessment: - A History and Physical has been performed. The patient's medications, allergies and sensitivities have been reviewed. - The risks and benefits of the procedure and the sedation options and risks were discussed with the patient. All questions were answered and informed consent was obtained. - Patient identification and proposed procedure were verified prior to the procedure by the physician, the nurse and the firer boiler. The procedure was verified in the endoscopy suite at 13:00 PM. After I obtained informed consent, the scope was passed under direct vision. Throughout the procedure, the patient's blood pressure, pulse, and oxygen saturations were monitored continuously. The bronchoscope was introduced through the mouth and advanced to the left lung only. The procedure was accomplished with moderate difficulty due to the patient's coughing, the presence of excessive secretions and the patient's respiratory instability (hypoxia). Successful completion of the procedure was aided by increasing supplemental oxygen and performing the maneuvers documented (below) in this report. Findings: Endobronchial biopsies of a mass were performed in the bronchus intermedius using a forceps and sent for histopathology examination. Five samples were obtained. Brushings of a mass were obtained in the right mainstem bronchus with a cytology brush and sent for cell count and differential and routine cytology. One sample was obtained. Trachea/Cherry Abnormalities: An area of friable mucosa was found throughout the tracheobronchial tree. Nearly obstructing (greater than 90% obstructed) dynamic collapse was found throughout the tracheobronchial tree. Right Lung Abnormalities: A partially obstructing (about 80% obstructed) mass was found proximally, at the orifice in the bronchus intermedius. The mass was medium-sized and fungating. The lesion was not traversed. Left Lung Abnormalities: Notable, mucoid, white secretions were found in the left lower lobe. They were not obstructing the airway. Impression: - Hilar/mediastinal abnormality of the right side - Right middle lobe lung mass suspicious for cancer - An endobronchial biopsy was performed. - Brushings were obtained. - Friable mucosa was found throughout the tracheobronchial tree. - Dynamic collapse was found throughout the tracheobronchial tree. Recommendation: - The patient will be observed post-procedure, until all discharge criteria are met. - Await biopsy and brushing results. - Patient has a contact number available for emergencies. The signs and symptoms of potential delayed complications were discussed with the patient. Return to normal activities tomorrow. Written discharge instructions were provided to the patient. - Follow up with bronchoscopist in one week. Procedure Code(s): --- Professional --- 25747, Bronchoscopy, rigid or flexible, including fluoroscopic guidance, when performed; with bronchial or endobronchial biopsy(s), single or multiple sites 93712, Bronchoscopy, rigid or flexible, including fluoroscopic guidance, when performed; with brushing or protected brushings Diagnosis Code(s): --- Professional --- R93.8, Abnormal findings on diagnostic imaging of other specified body structures J98.09, Other diseases of bronchus, not elsewhere classified R91.8, Other nonspecific abnormal finding of lung field CPT copyright 2017 [employer]. All rights reserved. The codes documented in this report are preliminary and upon temperature logging operator review may be revised to meet current compliance requirements. MD Lv Jacobs MD 02/04/2020 1:57:00 PM This report has been signed electronically. Number of Addenda: 0 Note Initiated On: 02/04/2020 12:47 PM
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
[2020-02-04 14:00] VITALS: BP 111/82; BP 125/82; PULSE 75; RESP 16; O2SAT 91
[2020-02-04 14:06] VITALS: BP 122/89; BP 125/82; PULSE 78; RESP 16; O2SAT 92
[2020-02-04 14:07] VITALS: BP 122/85; BP 125/82; PULSE 82; RESP 16; TEMP 36.3; O2SAT 85
[2020-02-04 14:24] LABS: Cytology, Body Fluid / CSF SEE PATHOLOGY REPORT; Cytology, Washings SEE PATHOLOGY REPORT
--- NOTE | 2020-02-05 | IMM_PTH ---
PATIENT: KAREN MERRILL LOC: EN U#:[id number] AGE/SX: 79/F ROOM: RE02/04/[address]: Dr. Lv Powell MD : 1940 BED: DIS: 02/04/2020 SPEC #: [id number] RECD: 02/08/20 10:26 STATUS: SERENA REQ #: [id number] ALEJO: 02/05/20 00:[address]: Lv Powell DEPT: IMMUNOHISTOCHEMISTRY RECD BY: Maryjane Woodard ENTERED: 02/08/20 10:28 SP TYPE: IMMUNO OTHR DR: Dr. Yasmin Peace MD Tissues: Lung, NOS Procedures: RCC (add) NAPSIN A (add) CK20 (add) CK5-6 (add) CK7 (add) CK8 (add) HEP PAR (add) CO (add) TTF1 (add) Pankeratin (add) P40 (add) ER (initial) PHYSICIAN & [address] [address] SPECIMEN INFORMATION: Tissue Source: Bronchus intermedius Clinical Info: Lung mass Specimen Number: [id number] CPT code: 79686, 06899 x11 METHODOLOGY: Deparaffinized sections of prefer/formalin-fixed tissue or PAP/DQ stained slides are incubated with monoclonal/polyclonal antibodies/oligonucleotide probes. Localization is made via biotin free immunoperoxidase method. Appropriate controls are performed and reacted as expected. Results on target cell population are indicated in the following table: RESULTS: ANTIBODY / CLONE RESULT ER (6F11) negative CO (1E2) negative AE1-3 (AE1/AE3/PCK26) positive CK7 (OV-TL12/30) positive CK8 (02kklbE51) positive CK20 (KS20.8) negative TTF-1 (8G7G3/1) negative Napsin A (Rabbit Polyclonal) negative HepPar (OCh1E5) negative RCC (PN-15) negative CK5-6 (D5 & 1684) positive P40 (BC28) positive These tests were developed and their performance characteristics determined by [facility]. They may not have been cleared or approved by the U.S. Food and Drug Administration. The FDA has determined that such clearance or approval is not necessary. The above immunohistochemical/dualISH markers are ordered and reviewed by the Pathologist. INTERPRETATION: Bronchus intermedius, biopsy: Non-small cell carcinoma, favor squamous cell carcinoma. SJ:chayito 02/09/20
--- NOTE | 2020-02-05 | LUNG_PTH ---
PATIENT: KAREN MERRILL LOC: EN U#:[id number] AGE/SX: 79/F ROOM: RE02/04/[address]: Dr. Lv Powell MD : 1940 BED: DIS: 02/04/2020 SPEC #: [id number] RECD: 02/05/20 12:51 STATUS: SERENA JENNIFER #: [id number] ALEJO: 02/05/20 00:[address]: Lv Powell DEPT: SURGICAL PATHOLOGY RECD BY: Janna Gonzalez ENTERED: 02/05/20 12:57 SP TYPE: LUNG BX OTHR DR: Dr. Yasmin Peace MD Tissues: Bronchus of right upper lobe Procedures: Surgery Specimen Level IV HEADER OPERATION: Bronchoscopy with biopsies PRE-OP DIAGNOSIS: Lung mass TISSUE SUBMITTED: Bronchus intermedius MICROSCOPIC DIAGNOSIS Bronchus intermedius, endobronchial biopsy: Non-small cell carcinoma, favor squamous cell carcinoma. See comment. SJ:chayito 02/08/20 COMMENT Immunohistochemistry ([id number]) supports the above diagnosis. Molecular studies on the tumor can be performed if clinically indicated. Please notify the laboratory if they are needed. MICROSCOPIC DESCRIPTION Slides are reviewed. GROSS DESCRIPTION Received in fixative is one container labeled with the patient's name and designated endobronchial biopsy, bronchus intermedius. The specimen consists of multiple irregular fragments of light scott soft tissue that in aggregate measure 1.5 x 0.3 x 0.1 cm. The specimen is totally submitted in one cassette. / MELISSA:chayito 02/05/20 TC:0 CPT: 22070
== END 2020-02-04 14:38 | disposition home or self-care (01) ==
LOC: EN 11:53 → AC 11:53
PROVIDERS: PCP Internal Medicine; Referring Provider Internal Medicine Critical Care Medicine; Visit Provider Internal Medicine Critical Care Medicine
PROC: 0BJ08ZZ Inspection of Tracheobronchial Tree, Via Natural or Artificial Opening Endoscopic (ICD-10-PCS; CPT 31622; principal; 2020-02-04 12:45)
DX: C34.00 Malignant neoplasm of unspecified main bronchus (principal); J96.21 Acute and chronic respiratory failure with hypoxia; J47.9 Bronchiectasis, uncomplicated; Q25.6 Stenosis of pulmonary artery; I26.99 Other pulmonary embolism without acute cor pulmonale; Q61.9 Cystic kidney disease, unspecified; I10 Essential (primary) hypertension; E78.00 Pure hypercholesterolemia, unspecified; D75.1 Secondary polycythemia; G25.81 Restless legs syndrome; M81.0 Age-related osteoporosis without current pathological fracture; E55.9 Vitamin D deficiency, unspecified; K21.9 Gastro-esophageal reflux disease without esophagitis; Z91.19 Patient's noncompliance with other medical treatment and regimen; Z79.01 Long term (current) use of anticoagulants; Z79.899 Other long term (current) drug therapy; Z87.891 Personal history of nicotine dependence
CPT/HCPCS: 31623; 31625; 88108; 88305; 88313; 88341; 88342; J7120; J2405; J3490

== ENCOUNTER → 2020-02-23 15:26 | Outpatient (CLI) | payer MEDICARE, SELFPAY ==
[2020-02-10 07:14] VITALS: BMI 19.5
--- NOTE | 2020-02-23 15:30 | PET_ITS ---
EXAMINATION: FDG PET-CT INDICATIONS: A 79-year-old female with reported history of carcinoma of the lung presenting for initial staging examination. COMPARISON EXAMINATION: FDG PET study report dated 02/02/2013, CT of the chest report dated 01/25/2020 INDEX LESION SIZE SUV INTERPRETATION Right thoracic perihilum-infrahilar region 35.4 x 64.1-mm (frame 147) 10.8 Fulfills quantitative criteria for viable neoplasm TECHNIQUE: Following the intravenous administration of 13.5 mCi of F-18 deoxyglucose via the left antecubital fossa, multiplanar image acquisitions of the neck, chest, abdomen and pelvis to level of mid thigh, obtained at one hour post radiopharmaceutical administration contemporaneously interpreted with the current CT of the neck, chest, abdomen and pelvis, to level of mid thigh, dated 02/23/2020 via coregistration and FDG PET study report dated 02/02/2013, CT of the chest report dated 01/25/2020 reveals: BLOOD GLUCOSE LEVEL:?? 81 mg/dl?HEIGHT:?69 inches?WEIGHT: 91 lbs. FINDINGS: 1. There is heterogeneous enhanced glucose metabolism, presumably newly apparent, manifest in the right thoracic perihilum-infrahilar region with a component of central photopenia generating a calculated maximal standard uptake value of 10.8. The maximal axial diameter of the metabolic, morphologic abnormality on review of CT of the chest dated 02/23/2020 is 35.4-mm (transverse) x 64.1-mm (AP). 2. Normal physiologic distribution of the radiopharmaceutical is apparent in the hepatic (2.0) and splenic parenchyma, both renal units, bladder and visualized intestinal tract. The visualized portion of the cerebral cortex demonstrate symmetric and preserved glucose metabolism. Diffuse radiopharmaceutical concentration is noted in all four quadrants of the abdomen and pelvis. Prominent radiopharmaceutical concentration extends from the right proximal-mid ureter consistent with physiologic tracer distribution. There is an increase in tracer uptake observed in the right lower lateral chest wall associated with the tenth rib likely representing trauma-fracture. Pertinent CT findings are as follows: CHEST: There is atherosclerotic calcification defined in the thoracic aorta without evidence of dilatation-aneurysm formation. Coronary arterial calcification is observed. Bilateral axillary soft tissue densities with fatty hilus are non-glucose avid. Calcified mediastinal soft tissue demonstrates no evidence of increased tracer uptake. Emphysematous changes are visualized in the upper-mid lung zones. Parenchymal densities aggregated in the right lower posterior lung field demonstrate no evidence of quantitatively significant increased FDG distribution. ABDOMEN AND PELVIS: A calcified exophytic cyst is defined in the right kidney without evidence of increased tracer uptake. Calcified granuloma formation is observed in the hepatic and splenic parenchyma. There is atherosclerotic calcification defined in the abdominal aorta without evidence of dilatation-aneurysm formation. Abdominal-pelvic arterial calcification is demonstrated. Exophytic cyst formation is noted in the inferior pole of the left kidney with a maximal axial diameter of 9.4-cm. Right and left subcentimeter inguinal soft tissue densities are non-glucose avid. Dense calcification is noted in the right adnexa without evidence of quantitatively significant enhanced FDG uptake. Calcifications are noted in the bilateral lower hemipelvis associated with the uterus and left adnexal regions which are non-glucose avid. SKELETAL: Degenerative changes are noted in the cervical, thoracic and lumbar spine. There is diffuse demineralization identified throughout the axial skeletal structures. PET/PET/CT Tumor Base -Thigh Init IMPRESSION: 1. ABNORMAL EXAMINATION INDICATIVE OF MALIGNANT VIABLE NEOPLASM. 2. Increased FDG distribution identified in the right thoracic perihilum-infrahilar region fulfills quantitative criteria for viable neoplasm. (Satya et al, Journal of Clinical Oncology 16:2142, 1998). 3. The increase in radiopharmaceutical concentration observed in the right lower lateral chest wall-tenth rib is most consistent with activated leukocytes associated with trauma-fracture. (Danica et al, [employer]oporosis International 13:755, 2002). 4. No other quantitatively significant hypermetabolic abnormalities are noted. There is no definitive scintigraphic evidence of distant metastatic disease. Electronic Signature Walker Landis D.O. Accurate Quantification of SUVs for this report are calculated using the exclusive [employer] Technology. Electronically Signed: Walker Landis DO at 17:03 EST Tel , Service support ,
== END ==
PROVIDERS: PCP Internal Medicine; Referring Provider Internal Medicine Critical Care Medicine; Visit Provider Internal Medicine Critical Care Medicine
DX: C34.91 Malignant neoplasm of unspecified part of right bronchus or lung (principal); C34.01 Malignant neoplasm of right main bronchus
CPT/HCPCS: 78815; A9552

== ENCOUNTER → 2020-03-07 16:55 | Outpatient (CLI) | payer MEDICARE, SELFPAY ==
[2020-02-10 07:14] VITALS: BMI 19.5
--- NOTE | 2020-03-07 16:59 | MRI_ITS ---
STUDY: MRI BRAIN WITH AND WITHOUT CONTRAST REASON FOR EXAM: Female, 79 years old. lung ca, initial staging, no neuro symptoms TECHNIQUE: Standardized multiplanar fat and water weighted pulse sequences were obtained. iv dotarem 9ml was administered for the contrast portion of the examination. COMPARISON: None. FINDINGS: Normal size of the ventricles and extra-axial spaces for the patient''s age. Normal white matter tracts of the supratentorial brain. There is moderately extensive chronic white matter ischemic gliotic change in the deep/periventricular and pontine white matter. Normal bilateral basal ganglia. Normal thalami. There is no extra-axial fluid accumulation. Normal flow voids within the major intracranial circulation suggesting patency by spin echo criteria. Normal venous enhancement. There is no enhancing intra-axial or extra-axial abnormality. Normal sella turcica, pituitary gland, infundibular stalk, optic chiasm and hypothalamus. Normal tectal plate and pineal gland. Normal midbrain, alexander and medulla. Normal cerebellum. Normal basal cisterns. Normal bilateral temporal bones. Normal bilateral internal auditory canals. No demonstrated orbital abnormality, within the constraints of a routine brain study. Normal visualized paranasal sinuses. Normal calvarium and skull base. Normal visualized soft tissue structures. Normal visualized upper cervical spine. MRI/Brain W/WO Contrast IMPRESSION: 1. No intracranial metastases. 2. Moderate chronic white matter ischemic disease. Electronically Signed: Jaz Zhu, at 20:22 EST Tel , Service support ,
== END ==
PROVIDERS: PCP Internal Medicine; Referring Provider Internal Medicine Hematology & Oncology; Visit Provider Internal Medicine Hematology & Oncology
DX: C34.11 Malignant neoplasm of upper lobe, right bronchus or lung (principal); C77.9 Secondary and unspecified malignant neoplasm of lymph node, unspecified
CPT/HCPCS: 70553; A9575